=== PATIENT | female | born 1965 | race Caucasian/White ===

== ENCOUNTER → 2020-09-08 12:09 | Outpatient (CLI) | payer OTHER, SELFPAY ==
[2020-09-08 16:17] LABS: Coronavirus 19 IgG Antibody Negative (Negative); Coronavirus 19 IgM Antibody Negative (Negative)
== END ==
PROVIDERS: Visit Provider Surgery
DX: Z01.818 Encounter for other preprocedural examination (principal); L72.0 Epidermal cyst
CPT/HCPCS: 36415; 86328

== ENCOUNTER 2020-09-10 06:17 | Day surgery (SDC) | payer OTHER, SELFPAY ==
[2020-09-08 15:06] VITALS: BMI 29.9
[2020-09-10 06:46] VITALS: BP 140/98; PULSE 70; RESP 18; TEMP 36.7; O2SAT 98
--- NOTE | 2020-09-10 06:54 | P.PN_ITS ---
[facility] Anesthesia Checklist - Patient Identification Patient Identification: Arm Band, Verbal (Name & ) - Structural Data Admitted From: Home Planned Operative Procedure/s: ex cyst Consent for Planned Operative Procedure(s) Verified: Yes Verified Documents: History and Physical - NPO Status Verified Time NPO: 00:00 - Chart Verification Results Verified: CBC, BMP - Additional verifications Patient : No Anesthesia Reactions: No Hx Blood Transfusions: No Blood Transfusion Reaction: No Cephalosporin Allergy: No Previous Colonoscopy: No - Cardiovascular Assessment Heart Sounds: S1 & S2 Pulse Strength: Baseline Pulse Rhythm: Regular Peripheral Edema: No - Airway Assessment C-Spine Mobility Assessed: Yes TMJ Mobility Assessed: Yes Dentition: Good Dentition - Neurological Assessment Level of Consciousness: Awake, Alert, Appropriate Hx Seizures: No Numbness or tingling in extremities: No - Anesthesia Plan Anesthesia Risk discussed: Yes Anesthesia Plan: Verified ASA Class: I Anesthesia Type: MAC [facility] History I have reviewed the patient's past medical history: Yes Medical History: Denies:: Cancer, Diabetes Mellitus Type 1, Diabetes Mellitus Type 2, Internal Pacemaker, MRSA *Have you ever received a pneumonia vaccine?: No *Have you received a flu vaccine this season?: Yes Anesthesia experience/problems:: none Other Surgeries: Yes: Appendectomy, Hysterectomy-Total. No: Pacemaker Amputation: No Fractures: No - *Social History Smoking Status: Never smoker Alcohol Intake: never Substance Use Type: denies use *Occupational Status:: employed Housing: house Household Members: spouse *Travel in the last 8 weeks: None Family Hx:: No significant family history
--- NOTE | 2020-09-10 07:45 | HMH.OPNOTE ---
Date of procedure: 09/10/20 Pre-op Diagnosis:: Scalp cyst Post-op Diagnosis:: Same Procedure performed:: Excision of cyst from the left posterior scalp (excisional length 1.5 cm) with intermediate complexity closure Surgeon:: Enrrique Rosenthal MD LOADER DEMOLDER:: Jose Alfredo Rhodes Anesthesia: MAC, local Estimated blood loss (mL): 4 Clinical Note:: Patient is a 55-year-old female from [facility] referred by Dr. Alvarez for a scalp cyst. She states that she has had several cyst taken off of various places in the past. She has had a cyst on the left posterior scalp for about 2 years. However, it has increased in size. She has had some symptoms including burning and stinging sensation. She therefore desired surgical excision. Operative findings:: Consistent with noninfected inclusion cyst Operative note:: Patient was taken to the operating room. She is maintained on the stretcher. She was positioned. Limited hair removal was performed. The area was prepped and draped in the standard surgical fashion. Skin was marked with a skin marker. Local anesthetic was infiltrated consisting of a total of 7 cc of Marcaine with epinephrine. Elliptical incision was made. Careful dissection was carried down to the cyst capsule. Using tenotomy dissection the underlying scalp cyst was dissected free from the surrounding tissues intact with the overlying skin ellipse adherent. It was sent off as specimen. Hemostasis was achieved with electrocautery. Tissues were reapproximated with a couple of interrupted 3-0 Vicryl sutures. Skin was closed with several katelin. Dermabond was applied for dressing. Condition: stable Disposition: PACU Specimens:: Scalp cyst Complications:: None immediately apparent
[2020-09-10 07:50] VITALS: BP 111/71; PULSE 70; RESP 18; TEMP 36.3; O2SAT 96
[2020-09-10 08:00] VITALS: BP 107/69; PULSE 60; RESP 18; O2SAT 98
[2020-09-10 08:10] VITALS: BP 112/68; PULSE 72; RESP 18; O2SAT 96
== END 2020-09-10 08:10 | disposition home or self-care (01) ==
PROVIDERS: PCP Family Medicine; Visit Provider Surgery
PROC: (CPT 21011; principal; 2020-09-10 07:30)
DX: L72.3 Sebaceous cyst (principal); Z79.899 Other long term (current) drug therapy; Z86.69 Personal history of other diseases of the nervous system and sense organs; G43.909 Migraine, unspecified, not intractable, without status migrainosus
CPT/HCPCS: 21011; 12031; 96374

== ENCOUNTER → 2020-11-07 14:26 | Outpatient (CLI) | payer OTHER, SELFPAY ==
--- NOTE | 2020-11-07 14:40 | CT_ITS ---
PROCEDURE: CT ABDOMEN WO CON CLINICAL HISTORY: possible pancreatitis Upper abdominal pain across abdomen for 2 weeks with diarrhea COMPARISON: No exams were available for comparison TECHNIQUE: Axial images obtained with sagittal and coronal reformats. All CT scans at the facility use one or more dose reduction, viz: automated exposure control, ma/kV adjustment per patient size (including targeted exams where dose is matched to indication, i.e. head), or iterative reconstruction technique. FINDINGS: There is some minimal pericardial thickening anteriorly. There is a small hiatal hernia. Mild fatty liver. The gallbladder is somewhat distended. No radiopaque gallstones evident. The spleen and adrenal glands are unremarkable. No evidence of pancreatitis. No renal or ureteral calculi. There are few small nodes in the right lower quadrant and in the mesenteries. No acute bony finding. There is a mild amount of retained colonic feces. IMPRESSION: No acute finding. No evidence of pancreatitis based on this unenhanced exam. Dictated by: Kin Espino MD 11/07/2020 15:18 Kin Espino MD in [facility] 11/07/2020 15:18
[2020-11-07 15:28] LABS: Basophils # 0.1 K/mm3 (0-0.2); Basophils % 0.6 % (0.1-2.0); Eosinophils # 0.2 K/mm3 (0.0-0.4); Eosinophils % 1.8 % (0.1-12.0); Hematocrit 40.4 % (37.0-47.0); Hemoglobin 13.7 g/dL (12.2-16.2); Lymphocytes # 2.4 K/mm3 (0.7-4.5); Lymphocytes % 25.5 % (10-50); Mean Corpuscular HGB Conc 33.9 g/dL (31.8-35.4); Mean Corpuscular Hemoglobin 29.4 pg (27.0-31.2); Mean Corpuscular Volume 86.8 fl (81-99); Mean Platelet Volume 8.2 fl (7.4-10.4); Monocytes # 0.3 K/mm3 (0.1-1.0); Neutrophils # 6.4 K/mm3 (1.8-7.8); Neutrophils % 69.1 % (37.0-80.0); Platelet Count 256 K/mm3 (142-424); Red Blood Count 4.65 M/mm3 (4.20-5.40); Red Cell Distribution Width 13.2 % (11.5-17.5); White Blood Count 9.2 K/mm3 (4.8-10.8)
[2020-11-07 15:41] LABS: Alanine Aminotransferase 50 U/L (12-78); Albumin Level 4.8 g/dl (3.5-5.0); Albumin/Globulin Ratio 1.5 (1.1-1.8); Alkaline Phosphatase 86 U/L (38-126); Anion Gap 12.5 mEq/L (5-15); Aspartate Amino Transferase 57 U/L (14-36); Bilirubin,Total 0.4 mg/dl (0.2-1.3); Blood Urea Nitrogen 24 mg/dl (7-17); Calcium 10.1 mg/dl (8.4-10.2); Carbon Dioxide 30 mmol/L (22.0-30.0); Chloride 101 mmol/L (98-107); Estimated Glomerular Filt Rate 39 ml/min (>60); GFR (African American) 47 ML/MIN (>60); Globulin 3.1 g/dL (1.3-3.2); Glucose 104 mg/dl (74-100); Lipase 79 U/L (23-300); Potassium 3.5 mmoL/L (3.5-5.1); Sodium 140 mmol/L (136-145); Total Protein,Serum 7.9 g/dl (6.3-8.2)
== END ==
PROVIDERS: PCP Family Medicine; Visit Provider Family Medicine
DX: R10.9 Unspecified abdominal pain (principal)
CPT/HCPCS: 36415; 74150; 80053; 83690; 85025

== ENCOUNTER → 2021-03-09 09:07 | Outpatient (CLI) | payer OTHER, SELFPAY ==
--- NOTE | 2021-03-09 09:12 | US_ITS ---
PROCEDURE: US GALLBLADDER CLINICAL INDICATION: ruq pain COMPARISON: No exams were available for comparison FINDINGS: Pancreas: Unremarkable/Not well seen Liver: Unremarkable. There is appropriate direction of blood flow within a non dilated portal vein. Right kidney: Unremarkable appearing. No hydronephrosis. Gallbladder: No stones are evident. There is no gallbladder wall thickening. Common duct is upper normal at 6 mm. IMPRESSION: Negative gallbladder ultrasound. No stones evident. Dictated by: Kin Espino MD 03/09/2021 13:23 Kin Espino MD in [facility] 03/09/2021 13:23
== END ==
PROVIDERS: PCP Family Medicine; Visit Provider Family Medicine
DX: R10.9 Unspecified abdominal pain (principal)
CPT/HCPCS: 76705

== ENCOUNTER 2021-08-22 23:16 | Emergency (ER) | payer OTHER, SELFPAY ==
[2021-08-22 23:18] VITALS: BP 146/93; PULSE 114; RESP 16; TEMP 37.2; O2SAT 96; BMI 30.9
[2021-08-22 23:27] VITALS: BMI 30.9
[2021-08-22 23:30] LABS: Microscopic, Urine URINE MICROSCOPIC (MICROSCOPIC)
[2021-08-22 23:34] LABS: Appearance,Urine CLOUDY (Clear); Bilirubin,Urine Negative (Negative); Blood, Urine 1+ (Negative); Color,Urine YELLOW (Yellow); Glucose,Urine (UA) Negative (Negative); Ketones,Urine Negative (Negative); Leukocyte Esterase,Urine 2+ (Negative); Nitrate,Urine Negative (Negative); Protein,Urine TRACE (Negative); Specific Gravity, Urine <= 1.005 (1.005-1.030); Urobilinogen,Urine 0.2 EU/dl (0.2)
[2021-08-22 23:48] LABS: Bacteria,Urine 3+ /lpf; WBC,Urine TNTC #/hpf (0-3)
[2021-08-22 23:55] LABS: Basophils # 0.1 K/mm3 (0-0.2); Basophils % 0.7 % (0.1-2.0); Eosinophils # 0.1 K/mm3 (0.0-0.4); Eosinophils % 0.9 % (0.1-12.0); Hematocrit 38.8 % (37.0-47.0); Lymphocytes # 1.2 K/mm3 (0.7-4.5); Lymphocytes % 11.6 % (10-50); Mean Corpuscular HGB Conc 33.5 g/dL (31.8-35.4); Mean Corpuscular Hemoglobin 28.7 pg (27.0-31.2); Mean Corpuscular Volume 85.6 fl (81-99); Mean Platelet Volume 9.1 fl (7.4-10.4); Monocytes # 0.3 K/mm3 (0.1-1.0); Monocytes % 3.2 % (1.7-9.3); Neutrophils # 8.6 K/mm3 (1.8-7.8); Neutrophils % 83.5 % (37.0-80.0); Platelet Count 271 K/mm3 (142-424); Red Blood Count 4.53 M/mm3 (4.20-5.40); Red Cell Distribution Width 13.3 % (11.5-17.5); White Blood Count 10.3 K/mm3 (4.8-10.8)
[2021-08-23] VITALS: BP 143/84; PULSE 92; O2SAT 95
[2021-08-23 00:04] LABS: Alanine Aminotransferase 30 U/L (12-78); Albumin Level 4.6 g/dl (3.5-5.0); Albumin/Globulin Ratio 1.5 (1.1-1.8); Alkaline Phosphatase 77 U/L (38-126); Amylase 122 U/L (30-110); Anion Gap 14.9 mEq/L (5-15); Aspartate Amino Transferase 30 U/L (14-36); Bilirubin,Total 0.3 mg/dl (0.2-1.3); Blood Urea Nitrogen 25 mg/dl (7-17); Calcium 9.8 mg/dl (8.4-10.2); Carbon Dioxide 27 mmol/L (22.0-30.0); Chloride 100 mmol/L (98-107); Creatinine Clearance Estimated 65 mL/min (50-200); Estimated Glomerular Filt Rate 46 ml/min (>60); GFR (African American) 56 ML/MIN (>60); Globulin 3.1 g/dL (1.3-3.2); Glucose 115 mg/dl (74-100); Potassium 3.9 mmoL/L (3.5-5.1); Sodium 138 mmol/L (136-145); Total Protein,Serum 7.7 g/dl (6.3-8.2)
[2021-08-23 00:13] LABS: Lipase 780 U/L (23-300)
--- NOTE | 2021-08-23 00:14 | CT_ITS ---
PROCEDURE INFORMATION: Exam: CT Abdomen And Pelvis With Contrast Exam date and time: 08/23/2021 12:14 AM Age: 56 years old Clinical indication: Abdominal pain; Localized; Lower; Prior surgery; Surgery date: 6+ months; Surgery type: Hysterectomy appendectomy; Additional info: Lower abd pain TECHNIQUE: Imaging protocol: Computed tomography of the abdomen and pelvis with contrast. Radiation optimization: All CT scans at this facility use at least one of these dose optimization techniques: automated exposure control; mA and/or kV adjustment per patient size (includes targeted exams where dose is matched to clinical indication); or iterative reconstruction. Contrast material: ISOVUE; Contrast volume: 70 ml; Contrast route: IV; COMPARISON: CT ABDOMEN WO CON 11/07/2020 2:51 PM FINDINGS: Lungs: Nonspecific minor left basilar streaky opacities suggest atelectasis or parenchymal scarring. The visualized lung bases are otherwise clear. Pleural spaces: There are no pleural effusions. Heart: There is a small pericardial fluid collection present.The visualized portions of the heart are unremarkable. Liver: There is diffuse decrease in hepatic parenchymal density consistent with fatty infiltration. Gallbladder and bile ducts: The gallbladder is normal. Pancreas: The pancreas is normal. Spleen: The spleen demonstrates punctate calcifications, consistent with remote granulomatous organism exposure. Adrenal glands: The adrenal glands are normal. Kidneys and ureters: There is mild uroepithelial enhancement of the proximal renal pelves and proximal right ureter. The kidneys are otherwise within range of normal. No ureteric stone disease. Extrarenal pelves are likely present bilaterally. No caliectasis. Stomach and bowel: The stomach is normal. The duodenum is unremarkable. Lack of gastrointestinal contrast limits evaluation of bowel. Mild diverticulosis is present in the distal colon. There is no evidence of colitis/diverticulitis. There is mildly excessive colonic stool content. Unopacified loops of small bowel within range of normal. Appendix: No evidence of appendicitis. Intraperitoneal space: There is no evidence of free intraperitoneal or pelvic fluid. No evidence of intraperitoneal free air. Vasculature: No abdominal aortic aneurysm. Lymph nodes: No enlarged lymph nodes. Urinary bladder: There is moderate bladder wall thickening. The bladder is decompressed. Reproductive: The uterus is either atrophic or absent.No adnexal cysts or masses are identified. Bones/joints: There is a mild S-shaped thoracolumbar scoliosis.There is no evidence of acute fracture.The thoracolumbar spine demonstrates mild degenerative changes at multiple levels. Soft tissues: Unremarkable. IMPRESSION: 1. Mild uroepithelial enhancement involving the renal pelves and proximal right ureter of uncertain clinical significance. Correlate clinically regarding the possibility of pyelonephritis. 2. Fatty hepatic infiltration. 3. Bladder incompletely distended with moderate bladder wall thickening consistent with chronic outflow obstruction, incomplete distention or cystitis. 4. Mild constipation.
[2021-08-23 00:21] LABS: Erythrocyte Sedimentation Rate 79 mm/hr (0-30)
[2021-08-23 00:23] LABS: Procalcitonin 0.331 ng/mL (0.0-2.0)
[2021-08-23 00:30] VITALS: BP 133/86; PULSE 89; O2SAT 95
--- NOTE | 2021-08-23 01:05 | HMH.EDNVD ---
ED Disposition Clinical Impression: Elevated amylase and lipase UTI (urinary tract infection) Qualifiers: Urinary tract infection type: site unspecified Hematuria presence: without hematuria Qualified Code(s): N39.0 - Urinary tract infection, site not specified Disposition: Home, Self-Care Condition on Discharge: Good Instructions: DI for Urinary Tract Infection (UTI) Additional Instructions: fluids and use meds and see pcp tuesday Prescriptions: levoFLOXacin [Levaquin 500mg tab] 500 mg PO DAILY #7 tab Transmission Status: Pending to [facility] Phenazopyridine HCl [Pyridium 200mg Tablet] 200 pow PO TID #6 tab Transmission Status: Pending to [facility] Referrals: Alex Alvarez MD [Primary Care Provider] - - Critical Care Critical Care Time: No Attestation: On 08/22/21, the high probability of a clinically significant, sudden or life threatening deterioration of the following system(s) required my full and direct attention, intervention and personal management. The time I documented below is in addition to time spent performing reported procedures but includes the following listed in this critical care notation. Medical Decision Making - Medical Records Medical records reviewed: Yes: I reviewed the patient's medical records. - Bj Inquiry Pt receiving controlled substance: No Vital Signs: 08/22/21 23:18 08/23/21 00:00 08/23/21 00:30 Temperature 98.9 F Temperature Source Oral Pulse Rate 92 H 89 Pulse Rate [Right] 114 H Respiratory Rate 16 Blood Pressure 143/84 H 133/86 Blood Pressure [Right Arm] 146/93 H Blood Pressure Mean [Right Arm] 110 02 Sat by Pulse Oximetry 96 95 95 Oxygen Delivery Method Room Air Room Air - Lab Data Lab results reviewed: Yes: I reviewed the patient's lab results. Lab Results 08/22/21 23:25: Urine Color Yellow, Urine Appearance Cloudy, Urine pH 6.0, Ur Specific [place] <= 1.005, Urine Protein Trace, Urine Glucose (UA) Negative, Urine Ketones Negative, Urine Blood 1+, Urine Nitrate Negative, Urine Bilirubin Negative, Urine Urobilinogen 0.2, Ur Leukocyte Esterase 2+ A, Urine RBC 5-10, Urine WBC Tntc, Ur Squamous Epith Cells 3-5, Urine Bacteria 3+ 08/22/21 23:50: WBC 10.3, RBC 4.53, Hgb 13.0, Hct 38.8, MCV 85.6, MCH 28.7, MCHC 33.5, RDW 13.3, Plt Count 271, MPV 9.1, Neut % (Auto) 83.5 H, Lymph % (Auto) 11.6, [place] % (Auto) 3.2, Eos % (Auto) 0.9, Baso % (Auto) 0.7, Neut # (Auto) 8.6 H, Lymph # (Auto) 1.2, [place] # (Auto) 0.3, Eos # (Auto) 0.1, Baso # (Auto) 0.1, ESR 79 H 08/22/21 23:50: Sodium 138, Potassium 3.9, Chloride 100, Carbon Dioxide 27, Anion Gap 14.9, BUN 25 H, Creatinine 1.20 H, Estimated Creat Clear 65, Estimated GFR 46 L, Est GFR ( Amer) 56 L, Glucose 115 H, Calcium 9.8, Total Bilirubin 0.3, AST 30, ALT 30, Alkaline Phosphatase 77, C-Reactive Protein 60.0 H, Total Protein 7.7, Albumin 4.6, Globulin 3.1, Albumin/Globulin Ratio 1.5, Amylase 122 H, Lipase 780 H, Procalcitonin 0.331 Result diagrams: 08/22/21 23:50 08/22/21 23:50 Orders (Tests/Meds): ED MEDICATIONS Generic Name Dose Route Start Last Admin Trade Name Freq PRN Reason Stop Dose Admin Sodium Chloride 1,000 mls @ 999 mls/hr 08/22/21 23:45 08/22/21 23:55 Sod Chlor 0.9% 1000ml Bag IV 08/23/21 00:45 999 mls/hr .Q1H1M ANDREA Administration Ceftriaxone Sodium 1 gm/ 50 mls @ 100 mls/hr 08/22/21 23:45 08/22/21 23:56 Sodium Chloride IV 09/05/21 23:44 100 mls/hr Q24H ANDREA Administration Sodium Chloride 8 ml 08/22/21 23:35 Sodium Chloride 0.9% 10ml Vial IV 09/21/21 23:34 NEEDED PRN dilute pepcid Discontinued Medications Generic Name Dose Route Start Last Admin Trade Name Freq PRN Reason Stop Dose Admin Famotidine 20 mg 08/22/21 23:35 08/22/21 23:46 Famotidine 20mg/2ml Vial IV 08/22/21 23:36 Not Given ONCE ONE Iopamidol 70 ml 08/23/21 01:21 08/23/21 01:22 Iopamidol-370 (76%);100ml Bottle IV 08/23/21 01:2
[2021-08-23 02:07] VITALS: BP 132/74; PULSE 87; RESP 18; TEMP 36.6; O2SAT 99
== END 2021-08-23 02:09 | disposition home or self-care (01) ==
PROVIDERS: Emergency Provider Emergency Medicine; PCP Family Medicine
DX: N30.00 Acute cystitis without hematuria (principal); I10 Essential (primary) hypertension; R74.8 Abnormal levels of other serum enzymes
CPT/HCPCS: 74177; 80053; 81001; 82150; 83690; 84145; 85025; 85651; 86140; 87086; 87088; 87186; 96365; 96375; 99283; J2405; Q9967

== ENCOUNTER → 2021-08-24 15:04 | Outpatient (CLI) | payer OTHER, SELFPAY ==
[2021-08-24 16:49] LABS: Lipase 44 U/L (23-300)
== END ==
PROVIDERS: Visit Provider Family Medicine
DX: R10.13 Epigastric pain (principal)
CPT/HCPCS: 83690

== ENCOUNTER 2021-08-26 15:38 | Emergency (ER) | payer OTHER, SELFPAY ==
[2021-08-26 15:39] VITALS: BP 163/103; PULSE 70; RESP 18; TEMP 36.6; O2SAT 97; BMI 30.9
--- NOTE | 2021-08-26 16:26 | HMH.EDGENADL ---
ED Disposition Clinical Impression: Urinary tract infection Qualifiers: Urinary tract infection type: site unspecified Hematuria presence: without hematuria Qualified Code(s): N39.0 - Urinary tract infection, site not specified Disposition: Home, Self-Care Condition on Discharge: Good Instructions: DI for Urinary Tract Infection (UTI) Additional Instructions: Additional instructions for URINARY TRACT INFECTION: Continue to take antibiotic as prescribed. Return immediately if you have an uncontrollable fever greater than 102 degrees, severe back or abdominal pain, inability to urinate, or repetitive vomiting. Call Dr. Alvarez on his cell phone if concerns. Referrals: Alex Alvarez MD [Primary Care Provider] - - Critical Care Critical Care Time: No Attestation: On 08/26/21, the high probability of a clinically significant, sudden or life threatening deterioration of the following system(s) required my full and direct attention, intervention and personal management. The time I documented below is in addition to time spent performing reported procedures but includes the following listed in this critical care notation. Medical Decision Making - Medical Records Medical records reviewed: Yes: I reviewed the patient's medical records. MR Comment: Reviewed emergency department note from 08/22/2021. Reviewed associated labs, CT scan report. Patient was treated with intravenous Rocephin and discharged on Levaquin. Reviewed urine culture which shows E. coli, resistant to Levaquin. Reviewed office note from 2 days ago from primary care provider. Treated with an injection of Rocephin and antibiotic was changed to nitrofurantoin. - Bj Inquiry Pt receiving controlled substance: No Vital Signs: 08/26/21 15:39 Temperature 97.9 F Temperature Source Oral Pulse Rate [Right Radial] 70 Respiratory Rate 18 Blood Pressure [Right Arm] 163/103 H Blood Pressure Mean [Right Arm] 123 Blood Pressure Source [Right Arm] Automatic Cuff Blood Pressure Position [Right Arm] Sitting 02 Sat by Pulse Oximetry 97 Oxygen Delivery Method Room Air - Lab Data Lab Results 08/26/21 16:30: Urine Color Yellow, Urine Appearance Clear, Urine pH 6.0, Ur Specific [place] <= 1.005, Urine Protein Negative, Urine Glucose (UA) Negative, Urine Ketones Negative, Urine Blood Negative, Urine Nitrate Negative, Urine Bilirubin Negative, Urine Urobilinogen 0.2, Ur Leukocyte Esterase Negative, Urine RBC None, Urine WBC 5-10, Ur Squamous Epith Cells 5-10, Urine Bacteria Trace 08/26/21 17:11: WBC 5.9, RBC 4.09 L, Hgb 12.0 L, Hct 35.8 L, MCV 87.5, MCH 29.3, MCHC 33.4, RDW 13.1, Plt Count 282, MPV 8.7, Neut % (Auto) 53.1, Lymph % (Auto) 38.2, [place] % (Auto) 5.2, Eos % (Auto) 2.4, Baso % (Auto) 1.0, Neut # (Auto) 3.2, Lymph # (Auto) 2.3, [place] # (Auto) 0.3, Eos # (Auto) 0.1, Baso # (Auto) 0.1 08/26/21 17:11: Sodium 143, Potassium 3.4 L, Chloride 104, Carbon Dioxide 30, Anion Gap 12.4, BUN 20 H, Creatinine 1.20 H, Estimated Creat Clear 65, Estimated GFR 46 L, Est GFR ( Amer) 56 L, Glucose 86, Calcium 9.4, Total Bilirubin 0.2, AST 31, ALT 18, Alkaline Phosphatase 70, Total Protein 7.0, Albumin 4.1, Globulin 2.9, Albumin/Globulin Ratio 1.4, Amylase 51, Lipase 86 08/26/21 17:11: Lactate 0.7 Result diagrams: 08/26/21 17:11 08/26/21 17:11 Orders (Tests/Meds): ED MEDICATIONS Generic Name Dose Route Start Last Admin Trade Name Freq PRN Reason Stop Dose Admin Ceftriaxone Sodium 1 gm/ 50 mls @ 100 mls/hr 08/26/21 18:00 Sodium Chloride IV 09/09/21 17:59 Q24H [facility] ORDERS Category Date Time Status Blood Culture Stat Micro 08/26/21 17:17 Received - Physician Consults Physician Consulted: Dr. Alvarez Time: 17:45 Reason -: Pt condition Comment/Response: Requests Rocephin 1 g IV, then discharge. Patient may call him on his cell phone over the weekend if any problems. Medical Decision Narrative: Urine analysis has improved, essentially normal. CBC un
[2021-08-26 16:47] LABS: Microscopic, Urine URINE MICROSCOPIC (MICROSCOPIC)
[2021-08-26 16:48] LABS: Appearance,Urine CLEAR (Clear); Bilirubin,Urine Negative (Negative); Blood, Urine Negative (Negative); Color,Urine YELLOW (Yellow); Glucose,Urine (UA) Negative (Negative); Ketones,Urine Negative (Negative); Leukocyte Esterase,Urine Negative (Negative); Nitrate,Urine Negative (Negative); Protein,Urine Negative (Negative); Specific Gravity, Urine <= 1.005 (1.005-1.030); Urobilinogen,Urine 0.2 EU/dl (0.2)
[2021-08-26 17:05] LABS: Bacteria,Urine Trace /lpf
[2021-08-26 17:30] LABS: Basophils # 0.1 K/mm3 (0-0.2); Chloride 104 mmol/L (98-107); Eosinophils # 0.1 K/mm3 (0.0-0.4); Eosinophils % 2.4 % (0.1-12.0); Hematocrit 35.8 % (37.0-47.0); Lymphocytes # 2.3 K/mm3 (0.7-4.5); Lymphocytes % 38.2 % (10-50); Mean Corpuscular HGB Conc 33.4 g/dL (31.8-35.4); Mean Corpuscular Hemoglobin 29.3 pg (27.0-31.2); Mean Corpuscular Volume 87.5 fl (81-99); Mean Platelet Volume 8.7 fl (7.4-10.4); Monocytes # 0.3 K/mm3 (0.1-1.0); Monocytes % 5.2 % (1.7-9.3); Neutrophils # 3.2 K/mm3 (1.8-7.8); Neutrophils % 53.1 % (37.0-80.0); Platelet Count 282 K/mm3 (142-424); Potassium 3.4 mmoL/L (3.5-5.1); Red Blood Count 4.09 M/mm3 (4.20-5.40); Red Cell Distribution Width 13.1 % (11.5-17.5); Sodium 143 mmol/L (136-145); White Blood Count 5.9 K/mm3 (4.8-10.8)
[2021-08-26 17:32] LABS: Alanine Aminotransferase 18 U/L (12-78); Amylase 51 U/L (30-110); Aspartate Amino Transferase 31 U/L (14-36); Blood Urea Nitrogen 20 mg/dl (7-17); Creatinine Clearance Estimated 65 mL/min (50-200); Estimated Glomerular Filt Rate 46 ml/min (>60); GFR (African American) 56 ML/MIN (>60)
[2021-08-26 17:33] LABS: Albumin Level 4.1 g/dl (3.5-5.0); Albumin/Globulin Ratio 1.4 (1.1-1.8); Alkaline Phosphatase 70 U/L (38-126); Anion Gap 12.4 mEq/L (5-15); Bilirubin,Total 0.2 mg/dl (0.2-1.3); Calcium 9.4 mg/dl (8.4-10.2); Carbon Dioxide 30 mmol/L (22.0-30.0); Globulin 2.9 g/dL (1.3-3.2); Glucose 86 mg/dl (74-100); Lactic Acid 0.7 mmol/L (0.7-2.1); Lipase 86 U/L (23-300)
--- NOTE | 2021-08-26 17:47 | PC.NURSE ---
Dr Barahona speaking to Dr Alvarez
[2021-08-26 19:55] VITALS: BP 163/103; PULSE 73; RESP 18; TEMP 36.8; O2SAT 97
== END 2021-08-26 19:58 | disposition home or self-care (01) ==
PROVIDERS: Emergency Provider Emergency Medicine; PCP Family Medicine
DX: N30.00 Acute cystitis without hematuria (principal); I10 Essential (primary) hypertension
CPT/HCPCS: 80053; 81001; 82150; 83605; 83690; 85025; 87040; 96365; 99282

== ENCOUNTER 2021-09-12 00:55 | Emergency (ER) | payer OTHER, SELFPAY ==
[2021-09-12 00:56] VITALS: BP 120/60; PULSE 112; RESP 16; TEMP 36.9; O2SAT 95; BMI 30.8
[2021-09-12 01:44] LABS: Microscopic, Urine URINE MICROSCOPIC (MICROSCOPIC)
[2021-09-12 01:52] LABS: Appearance,Urine CLEAR (Clear); Bilirubin,Urine Negative (Negative); Blood, Urine Negative (Negative); Color,Urine YELLOW (Yellow); Glucose,Urine (UA) Negative (Negative); Ketones,Urine TRACE (Negative); Leukocyte Esterase,Urine TRACE (Negative); Nitrate,Urine Negative (Negative); Protein,Urine 1+ (Negative); Urobilinogen,Urine 0.2 EU/dl (0.2)
--- NOTE | 2021-09-12 01:54 | CT_ITS ---
PROCEDURE INFORMATION: Exam: CT Abdomen And Pelvis With Contrast Exam date and time: 09/12/2021 1:54 AM Age: 56 years old Clinical indication: Abdominal pain; Flank; Right TECHNIQUE: Imaging protocol: Computed tomography of the abdomen and pelvis with contrast. Radiation optimization: All CT scans at this facility use at least one of these dose optimization techniques: automated exposure control; mA and/or kV adjustment per patient size (includes targeted exams where dose is matched to clinical indication); or iterative reconstruction. Contrast material: ISOVUE; Contrast volume: 75 ml; Contrast route: IV; COMPARISON: CT ABDOMEN PELVIS W CON 08/23/2021 1:08 AM FINDINGS: Lungs: Minimal bibasilar atelectasis and/or scarring. Diaphragm: Small-sized hiatal hernia. Liver: Normal. Gallbladder and bile ducts: Normal. Pancreas: Normal. Spleen: Splenic calcifications, compatible with prior granulomatous disease. Adrenal glands: Normal. No mass. Kidneys and ureters: Normal. Stomach and bowel: Colonic diverticulosis. Appendix: No evidence of appendicitis. Intraperitoneal space: Unremarkable. No free air. No significant fluid collection. Vasculature: Unremarkable. No abdominal aortic aneurysm. Lymph nodes: Unremarkable. No enlarged lymph nodes. Urinary bladder: Unremarkable as visualized. Reproductive: Uterus is surgically absent. Bones/joints: No acute abnormality. Soft tissues: Small fat containing umbilical hernia. IMPRESSION: No acute abdominal or pelvic abnormality.
[2021-09-12 01:56] LABS: Basophils % 0.2 % (0.1-2.0); Eosinophils # 0.3 K/mm3 (0.0-0.4); Eosinophils % 4.3 % (0.1-12.0); Hematocrit 37.6 % (37.0-47.0); Hemoglobin 12.4 g/dL (12.2-16.2); Lymphocytes # 0.4 K/mm3 (0.7-4.5); Lymphocytes % 5.1 % (10-50); Mean Corpuscular HGB Conc 33.1 g/dL (31.8-35.4); Mean Corpuscular Hemoglobin 28.7 pg (27.0-31.2); Mean Corpuscular Volume 86.7 fl (81-99); Mean Platelet Volume 8.6 fl (7.4-10.4); Monocytes # 0.3 K/mm3 (0.1-1.0); Monocytes % 4.1 % (1.7-9.3); Neutrophils # 6.6 K/mm3 (1.8-7.8); Neutrophils % 86.3 % (37.0-80.0); Platelet Count 162 K/mm3 (142-424); Red Blood Count 4.34 M/mm3 (4.20-5.40); Red Cell Distribution Width 13.3 % (11.5-17.5); White Blood Count 7.6 K/mm3 (4.8-10.8)
[2021-09-12 01:58] LABS: MANUAL DIFFERENTIAL MANUAL DIFFERENTIAL (MANUAL DIFF)
[2021-09-12 01:59] LABS: Amorphous Sediment,Urine Trace /lpf
[2021-09-12 02:00] LABS: Alanine Aminotransferase 37 U/L (12-78); Albumin Level 4.2 g/dl (3.5-5.0); Albumin/Globulin Ratio 1.6 (1.1-1.8); Alkaline Phosphatase 70 U/L (38-126); Anion Gap 11.3 mEq/L (5-15); Aspartate Amino Transferase 45 U/L (14-36); Bilirubin,Total 0.4 mg/dl (0.2-1.3); Blood Urea Nitrogen 20 mg/dl (7-17); Calcium 9.4 mg/dl (8.4-10.2); Carbon Dioxide 26 mmol/L (22.0-30.0); Chloride 104 mmol/L (98-107); Creatinine Clearance Estimated 70 mL/min (50-200); Estimated Glomerular Filt Rate 51 ml/min (>60); GFR (African American) 62 ML/MIN (>60); Globulin 2.7 g/dL (1.3-3.2); Glucose 110 mg/dl (74-100); Potassium 3.3 mmoL/L (3.5-5.1); Sodium 138 mmol/L (136-145); Total Protein,Serum 6.9 g/dl (6.3-8.2)
[2021-09-12 02:06] LABS: C-Reactive Protein 108.3 mg/L (0-4)
[2021-09-12 02:12] LABS: Lymphocytes % 4 % (10-50); Neutrophils % 84 % (42-76); Platelet Estimate Normal; RBC Morphology Normal; Total Cells Counted 100
[2021-09-12 02:19] LABS: Procalcitonin 0.592 ng/mL (0.0-2.0)
[2021-09-12 02:30] LABS: Erythrocyte Sedimentation Rate 31 mm/hr (0-30)
[2021-09-12 02:43] LABS: Troponin I < 0.01 ng/ml (0.00-0.034)
--- NOTE | 2021-09-12 03:10 | HMH.EDNVD ---
ED Disposition Clinical Impression: UTI (urinary tract infection) Qualifiers: Urinary tract infection type: site unspecified Hematuria presence: without hematuria Qualified Code(s): N39.0 - Urinary tract infection, site not specified Disposition: Home, Self-Care Condition on Discharge: Good Instructions: DI for Nausea -- Adult Additional Instructions: fluids and use meds and call pcp tuesday Referrals: Alex Alvarez MD [Primary Care Provider] - - Critical Care Critical Care Time: No Attestation: On 09/12/21, the high probability of a clinically significant, sudden or life threatening deterioration of the following system(s) required my full and direct attention, intervention and personal management. The time I documented below is in addition to time spent performing reported procedures but includes the following listed in this critical care notation. Medical Decision Making - Medical Records Medical records reviewed: Yes: I reviewed the patient's medical records. - Bj Inquiry Pt receiving controlled substance: No Vital Signs: 09/12/21 00:56 Temperature 98.5 F Temperature Source Oral Pulse Rate [Apical] 112 H Respiratory Rate 16 Blood Pressure [Right Arm] 120/60 Blood Pressure Mean [Right Arm] 80 Blood Pressure Source [Right Arm] Automatic Cuff Blood Pressure Position [Right Arm] Sitting 02 Sat by Pulse Oximetry 95 Oxygen Delivery Method Room Air - Lab Data Lab results reviewed: Yes: I reviewed the patient's lab results. Lab Results 09/12/21 00:03: Urine Color Yellow, Urine Appearance Clear, Urine pH 6.0, Ur Specific [place] 1.020, Urine Protein 1+, Urine Glucose (UA) Negative, Urine Ketones Trace, Urine Blood Negative, Urine Nitrate Negative, Urine Bilirubin Negative, Urine Urobilinogen 0.2, Ur Leukocyte Esterase Trace, Urine WBC 3-5, Amorphous Sediment Trace 09/12/21 01:30: WBC 7.6, RBC 4.34, Hgb 12.4, Hct 37.6, MCV 86.7, MCH 28.7, MCHC 33.1, RDW 13.3, Plt Count 162, MPV 8.6, Neut % (Auto) 86.3 H, Lymph % (Auto) 5.1 L, [place] % (Auto) 4.1, Eos % (Auto) 4.3, Baso % (Auto) 0.2, Neut # (Auto) 6.6, Lymph # (Auto) 0.4 L, [place] # (Auto) 0.3, Eos # (Auto) 0.3, Baso # (Auto) 0.0, Total Counted 100, Neutrophils % (Manual) 84 H, Band Neutrophils % 12.0 H, Lymphocytes % (Manual) 4 L, Platelet Estimate Normal, RBC Morphology Normal, ESR 31 H 09/12/21 01:30: Sodium 138, Potassium 3.3 L, Chloride 104, Carbon Dioxide 26, Anion Gap 11.3, BUN 20 H, Creatinine 1.10 H, Estimated Creat Clear 70, Estimated GFR 51 L, Est GFR ( Amer) 62, Glucose 110 H, Calcium 9.4, Total Bilirubin 0.4, AST 45 H, ALT 37, Alkaline Phosphatase 70, C-Reactive Protein 108.3 H, Total Protein 6.9, Albumin 4.2, Globulin 2.7, Albumin/Globulin Ratio 1.6, Procalcitonin 0.592 09/12/21 01:30: Troponin I < 0.01 09/12/21 01:30: Lactate 1.0 Result diagrams: 09/12/21 01:30 09/12/21 01:30 Orders (Tests/Meds): ED MEDICATIONS Generic Name Dose Route Start Last Admin Trade Name Freq PRN Reason Stop Dose Admin Sodium Chloride 1,000 mls @ 999 mls/hr 09/12/21 02:00 09/12/21 01:54 Sod Chlor 0.9% 1000ml Bag IV 09/12/21 03:00 999 mls/hr .Q1H1M ANDREA Administration Discontinued Medications Generic Name Dose Route Start Last Admin Trade Name Freq PRN Reason Stop Dose Admin Acetaminophen 1,000 mg 09/12/21 03:32 09/12/21 03:35 Acetaminophen 500mg Tab PO 09/12/21 03:33 1,000 mg ONCE ONE Administration Hydromorphone HCl 1 mg 09/12/21 04:15 09/12/21 04:18 Hydromorphone 2mg/Ml Syringe IV 09/12/21 04:16 1 mg ONCE ONE Administration Iopamidol 75 ml 09/12/21 02:27 09/12/21 02:28 Iopamidol-370 (76%);100ml Bottle IV 09/12/21 02:28 75 ml ONCE ONE Administration Ketorolac Tromethamine 30 mg 09/12/21 02:47 09/12/21 02:49 Ketorolac 30mg/Ml Vial IV 09/12/21 02:48 30 mg ONCE ONE Administration Ondansetron HCl 4 mg 09/12/21 01:53 09/12/21 01:53 Ondansetron 4mg/2ml Vial IV 09/12/21 01:54 4 mg ONCE ONE
[2021-09-12 05:37] VITALS: BP 125/75; PULSE 95; RESP 18; TEMP 36.8; O2SAT 98
== END 2021-09-12 05:41 | disposition home or self-care (01) ==
PROVIDERS: Emergency Provider Emergency Medicine; PCP Family Medicine
DX: N30.00 Acute cystitis without hematuria (principal); I10 Essential (primary) hypertension; G43.709 Chronic migraine without aura, not intractable, without status migrainosus
CPT/HCPCS: 74177; 80053; 81001; 83605; 84145; 84484; 85007; 85025; 85651; 86140; 87040; 87086; 96365; 96375; 99282; J2405; Q9967

== ENCOUNTER 2021-09-13 16:56 | Emergency (ER) | payer OTHER, SELFPAY ==
[2021-09-13 18:01] VITALS: BP 129/80; PULSE 80; RESP 18; TEMP 36.6; O2SAT 98; BMI 30.8
[2021-09-13 18:18] LABS: Microscopic, Urine URINE MICROSCOPIC (MICROSCOPIC)
[2021-09-13 18:18] LABS: Coronavirus 19, PCR Not Detected (NotDetected); Influenza A, PCR Not Detected (NotDetected); Influenza B, PCR Not Detected (NotDetected)
--- NOTE | 2021-09-13 18:19 | XR_ITS ---
PROCEDURE INFORMATION: Exam: XR Chest Exam date and time: 09/13/2021 6:19 PM Age: 56 years old Clinical indication: Cough and fever; Patient HX: Cough, fever, possible covid. ; Additional info: Coughing TECHNIQUE: Imaging protocol: XR of the chest. Views: 1 view. COMPARISON: CT ABDOMEN PELVIS W CON 09/12/2021 2:17 AM FINDINGS: Lungs: See Pleural spaces finding. Pleural spaces: Left basilar opacity, likely pleural fluid and atelectasis, with possible small left lower lobe pneumonia. Heart/Mediastinum: Normal. Bones/joints: Multilevel thoracic spine degenerative disc space narrowing and osteophyte formation, with dextroscoliosis of the thoracic spine. IMPRESSION: Left basilar opacity, likely pleural fluid and atelectasis, with possible small left lower lobe pneumonia. Recommend follow-up.
[2021-09-13 18:23] LABS: Appearance,Urine CLEAR (Clear); Bilirubin,Urine Negative (Negative); Blood, Urine TRACE-I (Negative); Color,Urine YELLOW (Yellow); Glucose,Urine (UA) Negative (Negative); Ketones,Urine Negative (Negative); Leukocyte Esterase,Urine TRACE (Negative); Nitrate,Urine Negative (Negative); PH,Urine 6.5 (5.0-8.5); Protein,Urine 1+ (Negative); Urobilinogen,Urine 0.2 EU/dl (0.2)
--- NOTE | 2021-09-13 18:27 | PC.NURSE ---
rad at bedside
[2021-09-13 18:42] LABS: Bacteria,Urine Trace /lpf
[2021-09-13 19:04] LABS: Basophils % 0.3 % (0.1-2.0); Eosinophils # 0.5 K/mm3 (0.0-0.4); Eosinophils % 7.5 % (0.1-12.0); Hematocrit 40.4 % (37.0-47.0); Hemoglobin 13.1 g/dL (12.2-16.2); Lymphocytes # 0.7 K/mm3 (0.7-4.5); Lymphocytes % 10.1 % (10-50); Mean Corpuscular HGB Conc 32.5 g/dL (31.8-35.4); Mean Corpuscular Hemoglobin 28.4 pg (27.0-31.2); Mean Corpuscular Volume 87.6 fl (81-99); Mean Platelet Volume 8.4 fl (7.4-10.4); Monocytes # 0.2 K/mm3 (0.1-1.0); Monocytes % 2.5 % (1.7-9.3); Neutrophils # 5.7 K/mm3 (1.8-7.8); Neutrophils % 79.6 % (37.0-80.0); Platelet Count 177 K/mm3 (142-424); Red Blood Count 4.62 M/mm3 (4.20-5.40); Red Cell Distribution Width 13.3 % (11.5-17.5); White Blood Count 7.1 K/mm3 (4.8-10.8)
[2021-09-13 19:22] LABS: Alanine Aminotransferase 84 U/L (12-78); Albumin Level 4.1 g/dl (3.5-5.0); Albumin/Globulin Ratio 1.4 (1.1-1.8); Alkaline Phosphatase 75 U/L (38-126); Anion Gap 8.6 mEq/L (5-15); Aspartate Amino Transferase 100 U/L (14-36); Bilirubin,Total 0.9 mg/dl (0.2-1.3); Blood Urea Nitrogen 17 mg/dl (7-17); Carbon Dioxide 29 mmol/L (22.0-30.0); Chloride 104 mmol/L (98-107); Creatinine Clearance Estimated 70 mL/min (50-200); Estimated Glomerular Filt Rate 51 ml/min (>60); GFR (African American) 62 ML/MIN (>60); Globulin 2.9 g/dL (1.3-3.2); Glucose 86 mg/dl (74-100); Potassium 3.6 mmoL/L (3.5-5.1); Sodium 138 mmol/L (136-145)
--- NOTE | 2021-09-13 20:16 | HMH.EDGENADL ---
ED Disposition Clinical Impression: Pneumonia Disposition: Home, Self-Care Condition on Discharge: Good Instructions: Pneumonia-Adult Additional Instructions: Please take your antibiotic as prescribed for your pneumonia. Please take tylenol and ibuprofen for pain control. Please follow up with your primary care physician in 2-3 days for further management. Return to the ED for any concerning symptoms such as difficulty breathing, chest pain, lethargy, inability to eat and drink or any other concerning symptoms. Prescriptions: Azithromycin [Z-Maikel 250mg Tab*] 250 mg PO UD DOSE PK #6 tab Transmission Status: Received by [facility] Referrals: Alex Alvarez MD [Primary Care Provider] - - Critical Care Critical Care Time: No Attestation: On 09/13/21, the high probability of a clinically significant, sudden or life threatening deterioration of the following system(s) required my full and direct attention, intervention and personal management. The time I documented below is in addition to time spent performing reported procedures but includes the following listed in this critical care notation. Medical Decision Making - Medical Records Medical records reviewed: Yes: I reviewed the patient's medical records. - Bj Inquiry Pt receiving controlled substance: No Vital Signs: 09/13/21 18:01 09/13/21 20:25 Temperature 98 F 98.4 F Temperature Source Oral Oral Pulse Rate 78 Pulse Rate [Right Radial] 80 Respiratory Rate 18 20 Blood Pressure 142/82 H Blood Pressure [Right Arm] 129/80 Blood Pressure Mean [Right Arm] 96 Blood Pressure Source [Right Arm] Automatic Cuff Blood Pressure Position [Right Arm] Supine 02 Sat by Pulse Oximetry 98 Oxygen Delivery Method Room Air Room Air - Lab Data Lab Results 09/13/21 18:01: SARS-CoV-2 (PCR) Not detected, Influenza A Untype (PCR) Not detected, Influenza Type B (PCR) Not detected 09/13/21 18:03: Urine Color Yellow, Urine Appearance Clear, Urine pH 6.5, Ur Specific [place] 1.010, Urine Protein 1+, Urine Glucose (UA) Negative, Urine Ketones Negative, Urine Blood Trace-i, Urine Nitrate Negative, Urine Bilirubin Negative, Urine Urobilinogen 0.2, Ur Leukocyte Esterase Trace, Urine RBC 3-5, Urine WBC 10-20, Ur Squamous Epith Cells 3-5, Urine Bacteria Trace 09/13/21 18:56: WBC 7.1, RBC 4.62, Hgb 13.1, Hct 40.4, MCV 87.6, MCH 28.4, MCHC 32.5, RDW 13.3, Plt Count 177, MPV 8.4, Neut % (Auto) 79.6, Lymph % (Auto) 10.1, [place] % (Auto) 2.5, Eos % (Auto) 7.5, Baso % (Auto) 0.3, Neut # (Auto) 5.7, Lymph # (Auto) 0.7, [place] # (Auto) 0.2, Eos # (Auto) 0.5 H, Baso # (Auto) 0.0 09/13/21 18:56: Sodium 138, Potassium 3.6, Chloride 104, Carbon Dioxide 29, Anion Gap 8.6, BUN 17, Creatinine 1.10 H, Estimated Creat Clear 70, Estimated GFR 51 L, Est GFR ( Amer) 62, Glucose 86, Calcium 9.0, Total Bilirubin 0.9, AST 100 H D, ALT 84 H D, Alkaline Phosphatase 75, Total Protein 7.0, Albumin 4.1, Globulin 2.9, Albumin/Globulin Ratio 1.4 Result diagrams: 09/13/21 18:56 09/13/21 18:56 Orders (Tests/Meds): ED MEDICATIONS Discontinued Medications Generic Name Dose Route Start Last Admin Trade Name Skinnyq PRN Reason Stop Dose Admin Acetaminophen 500 mg 09/13/21 18:20 09/13/21 18:28 Acetaminophen 500mg Tab PO 09/13/21 18:21 500 mg ONCE ONE Administration Nicardipine HCl 25 mg/ Sodium 250 mls @ 50 mls/hr 09/13/21 19:30 09/13/21 19:39 Chloride IV 10/13/21 19:29 Not Given .Q5H [facility] Protocol ORDERS Category Date Time Status Urine Culture Stat Micro 09/13/21 18:03 Received - Radiology Data #1 Image(s): Chest Image Reviewed: Yes I reviewed the patient's radiology results Left lower lobe infiltrate concerning for pneumonia Medical Decision Narrative: Mrs. Campos and is a 56-year-old female with prior urinary tract infection incomplete treatment who presents to the emergency department for multiple complaints including fevers, nonbloody nonb
[2021-09-13 20:25] VITALS: BP 142/82; PULSE 78; RESP 20; TEMP 36.9; O2SAT 96
== END 2021-09-13 20:37 | disposition home or self-care (01) ==
PROVIDERS: Emergency Provider Student in an Organized Health Care Education/Training Program; PCP Family Medicine
DX: J18.9 Pneumonia, unspecified organism (principal); I10 Essential (primary) hypertension
CPT/HCPCS: 71045; 80053; 81001; 85025; 87086; 87088; 87186; 99283; C9803; U0003; U0005

== ENCOUNTER → 2022-08-13 15:00 | Outpatient (CLI) | payer OTHER, SELFPAY | PROVIDERS: PCP Family Medicine; Visit Provider Family Medicine | DX: N39.0 Urinary tract infection, site not specified (principal) | CPT/HCPCS: 87086 ==

== ENCOUNTER 2022-09-23 09:57 | Day surgery (SDC) | payer OTHER, SELFPAY ==
[2022-09-02 14:21] VITALS: BMI 28.8
[2022-09-23 10:14] VITALS: BP 144/81; PULSE 83; RESP 18; TEMP 36.2; O2SAT 97
[2022-09-23 11:09] VITALS: O2SAT 97
--- NOTE | 2022-09-23 11:16 | EXP.ANES.CKL ---
[facility] Disclaimer: The information contained in this section may have been updated after the patient was seen, as this information can be updated by other users. Medical History History of Meniere's disease Hx of migraines Surgical History History of appendectomy History of hysterectomy Hx of cholecystectomy Family History Other Family history of cancer Family history of diabetes mellitus type II Lung cancer Social History Smoking Status: Never smoker alcohol intake: never substance use type: denies use current occupational status: retired Travel in the last 8 weeks: None household members: spouse housing: house lives independently: Yes marital status: education level: high school current occupational exposures/hazards: No caffeine: Yes special esther needs: No agree to transfusion: No do you feel safe at home: Yes victim of physical abuse: No victim of emotional abuse: No victim of sexual abuse: No would you like helpful sources: No [facility] Anesthesia Checklist Patient Identification Patient Identification: Arm Band and Verbal (Name & ) Structural Data Admitted From: Home Planned Operative Procedure/s: Colonoscopy Consent for Planned Operative Procedure(s) Verified: Yes Verified Documents: Surgical Consent NPO Status Verified Time NPO: 04:00 Additional verifications Anesthesia Reactions: No Hx Blood Transfusions: No Blood Transfusion Reaction: No Airway Assessment C-Spine Mobility Assessed: Yes TMJ Mobility Assessed: Yes Dentition: Good Dentition Neurological Assessment Level of Consciousness: Awake, Alert and Appropriate Anesthesia Plan ASA Class: II Anesthesia Type: MAC
--- NOTE | 2022-09-23 11:23 | HMH.SCOPE ---
Procedure: Date: 09/23/22 Patient Date of :: 1965 Procedure Performed:: Screening colonoscopy Indications:: Screening for colon cancer Performing Provider:: Nitesh Kaur MD Referring Provider:: Alex Alvarez Sedation:: Propofol Procedure:: After placing the patient in the left lateral decubitus position, the colonoscopy was gently inserted into the rectum and under direct visualization advanced to the cecum which was identified by transillumination in the right lower quadrant, identification of the ileocecal valve, appendiceal orifice, and cecal strap. Color, texture, mucosa, and anatomy of the colon were carefully examined with the scope. Findings:: Anal canal: normal Rectum: normal Sigmoid colon: normal without polyps or inflammatory changes Descending colon: normal without polyps or inflammatory changes Splenic flexure: normal Transverse colon: normal without polyps or inflammatory changes Hepatic flexure: normal Ascending colon: normal without polyps or inflammatory changes Cecum: normal Terminal ileum: not visualized Impression: Normal colonoscopy Specimens:: None Recommendations:: Follow up exam in about TEN years or so, sooner if clinically indicated Complications:: None Estimated blood obtained (mL): 0
[2022-09-23 11:24] VITALS: BP 106/61; PULSE 65; RESP 15; TEMP 36.6; O2SAT 97
[2022-09-23 11:34] VITALS: BP 115/77; PULSE 69; RESP 16; O2SAT 100
[2022-09-23 11:44] VITALS: BP 114/53; PULSE 66; RESP 18; O2SAT 100
[2022-09-23 11:54] VITALS: BP 117/74; PULSE 65; RESP 18; O2SAT 100
== END 2022-09-23 12:09 | disposition home or self-care (01) ==
PROVIDERS: PCP Family Medicine; Visit Provider Internal Medicine Gastroenterology
PROC: 0DJD8ZZ Inspection of Lower Intestinal Tract, Via Natural or Artificial Opening Endoscopic (ICD-10-PCS; CPT 45378; principal; 2022-09-23 11:00)
DX: Z12.11 Encounter for screening for malignant neoplasm of colon (principal); Z79.899 Other long term (current) drug therapy
CPT/HCPCS: 45378

== ENCOUNTER → 2023-06-07 12:45 | Outpatient (CLI) | payer OTHER, SELFPAY ==
--- NOTE | 2023-06-07 12:46 | MR_ITS ---
FINAL REPORT CLINICAL HISTORY: WORSENING BACK PAIN lower back pain since january 2023 left leg pain FINDINGS: Multiplanar MR imaging of the lumbar spine was performed without contrast. On the sagittal T2-weighted images, disc degeneration is seen throughout. There is levoscoliosis. The vertebral alignment is normal. There is no evidence of fracture. The conus has an unremarkable appearance. There are multiple cysts in the upper sacral spine. L1-2: An annular bulge is present. There is a small left foraminal disc protrusion. L2-3: An annular bulge is present. There is a left posterolateral disc protrusion with mild left neural foraminal narrowing. L3-4: An annular bulge is present. There is a left posterolateral disc protrusion with mild left neural foraminal narrowing. L4-5: There is an annular bulge with mild left neural foraminal narrowing. L5-S1: There is an annular bulge with facet arthropathy. There is a left posterolateral disc protrusion. There is moderate left neural foraminal narrowing. IMPRESSION: Multilevel disc protrusions with associated neural foraminal narrowing. Reviewed, Interpreted and Dictated by Enrrique Antonio III, MD Transcribed by Ishaan Georges Authenticated and . [facility]
== END ==
LOC: RAD 12:46
PROVIDERS: PCP Family Medicine; Visit Provider Family Medicine
DX: M54.9 Dorsalgia, unspecified (principal); M54.50 Low back pain, unspecified; Z86.69 Personal history of other diseases of the nervous system and sense organs
CPT/HCPCS: 72148; 76376

== ENCOUNTER → 2023-07-01 08:26 | Outpatient (POV) | payer OTHER, SELFPAY ==
[2023-07-01 09:18] VITALS: BP 146/97; PULSE 96; RESP 18; O2SAT 96; BMI 29.2
--- NOTE | 2023-07-01 12:15 | EXP.PAIN.OV ---
HPI Data of Consult Patient: new to practice Consult date: 07/01/23 Requesting Physician: Simeon Jeffery CRNA Primary Care Provider: Alex Alvarez MD Consult Narrative Reason for consult: Lumbar back pain. Left hip and leg radicular symptoms. History of present illness: Ms. Salter is a 58 year old female who comes our clinic today for initial evaluation regarding chronic low back pain she describes as constant, dull, aching. Patient also complains of left hip and leg radicular symptoms to the foot. She describes the pain in the low back as constant, dull, aching. Patient also complains of left hip and leg radicular symptoms that she describes as constant, dull, aching. Patient is lumbar MRI on 06/07/2023 reveals multilevel disc disease lumbar spine. Multilevel disc bulge lumbar spine. Neuroforaminal narrowing L2-3, L3-4, L4-5 and L5-S1. Patient rates her pain 7/10. Patient is a very active individual. She does a lot of outdoor work around her home and garden. CC: Simeon Jeffery CRNA [facility] Disclaimer: The information contained in this section may have been updated after the patient was seen, as this information can be updated by other users. Medical History History of Meniere's disease Hx of migraines vascular Surgical History History of appendectomy History of hysterectomy Hx of cholecystectomy Family History Other Family history of cancer Family history of diabetes mellitus type II Lung cancer Social History (Updated 07/01/23 @ 09:19 by Lucy Ordaz RN) Smoking Status: Never smoker alcohol intake: never substance use type: denies use current occupational status: employed Travel in the last 8 weeks: None household members: spouse housing: house lives independently: Yes marital status: education level: high school current occupational exposures/hazards: No caffeine: Yes special esther needs: No agree to transfusion: No do you feel safe at home: Yes victim of physical abuse: No victim of emotional abuse: No victim of sexual abuse: No would you like helpful sources: No Meds Home Medications and Allergies Home Medications Medication Instructions Recorded Confirmed Type diazepam 2 mg tablet 2 mg PO NEEDED PRN meniers dx 08/13/22 07/01/23 History ondansetron 4 mg disintegrating 4 mg PO NEEDED PRN Nausea, 08/13/22 07/01/23 History tablet meniers dx triamterene 37.5 1 tab PO NEEDED PRN ear fluid 08/13/22 07/01/23 History mg-hydrochlorothiazide 25 mg tablet tizanidine 4 mg capsule 4 mg PO TID PRN muscle spasticity 03/17/23 07/01/23 Rx #30 caps ketorolac 10 mg tablet 10 mg PO Q8H PRN pain 5 days #30 05/26/23 07/01/23 Rx tabs hydrocodone 5 mg-acetaminophen 325 1 tab PO Q8H PRN pain #15 tabs 06/16/23 07/01/23 Rx mg tablet dicyclomine 20 mg tablet 20 mg PO TID BOWELS 07/01/23 07/01/23 History pantoprazole 40 mg tablet,delayed See Rx Instructions .Route 07/01/23 07/01/23 History release .COMPLEX GERD rizatriptan 10 mg tablet See Rx Instructions .Route 07/01/23 07/01/23 History .COMPLEX MIGRAINES New Prescriptions to Start Prescriptions: Allergies Allergy/AdvReac Type Severity Reaction Status Date / Time nitrofurantoin AdvReac Verified 06/16/23 10:54 [From Macrobid] phenegran AdvReac Uncoded 06/16/23 10:54 Objective Vital signs: Pulse Resp BP Pulse Ox O2 Del Method 96 H 18 146/97 H 96 Room Air 07/01/23 09:18 07/01/23 09:18 07/01/23 09:18 07/01/23 09:18 07/01/23 09:18 Assessment and Plan *Assessment and plan (1) Lumbar back pain with radiculopathy affecting left lower extremity: Status: Acute Category: Medical Code(s): M54.16 - Radiculopathy, lumbar region (2) Bulging lumbar d
== END ==
PROVIDERS: PCP Family Medicine; Visit Provider Nurse Anesthetist, Certified Registered
DX: M51.16 Intervertebral disc disorders with radiculopathy, lumbar region (principal)
CPT/HCPCS: 99202; G0463

== ENCOUNTER 2023-07-19 08:02 | Day surgery (SDC) | payer OTHER, SELFPAY ==
[2023-07-19 08:12] VITALS: BP 146/94; BP 147/76; PULSE 65; PULSE 70; RESP 20; TEMP 36.4; O2SAT 97; O2SAT 98; BMI 29.0
[2023-07-19 08:49] VITALS: BP 152/86; PULSE 61; RESP 18; O2SAT 97
[2023-07-19 08:50] VITALS: BP 152/86; PULSE 63; RESP 18; O2SAT 97
--- NOTE | 2023-07-19 08:54 | P.PCN_ITS ---
Procedure Date: 07/19/23 Time: 08:30 Anesthesiologist:: Simeon Jeffery CRNA Complications:: None Pre-procedure Diagnosis:: Disc lumbar spine multilevels. Lumbar radiculopathy Post-procedure Diagnosis:: Same. Indications for Procedure:: Patient is a very pleasant 58-year-old female that comes our clinic today for lumbar epidural steroid injection L4-5 level. Patient complains of low back pain as well as bilateral hip and leg radicular symptoms. Lumbar MRI shows multilevel disc degeneration. Multilevel disc bulge lumbar spine. Multiple level neuroforaminal narrowing. She rates her pain 7/10. Procedure Details:: Procedure: Lumbar epidural steroid injection under fluoroscopy Informed consent was obtained and the risks and benefits of the procedure were explained to the patient. The patient was taken to the procedure room and non invasive monitors placed, including noninvasive blood pressure cuff and pulse oximeter. The back was viewed using C-arm Fluoroscopy and prepped using Chloraprep as a cleansing solution and the L4-L5 interspace was palpated. Skin and subcutaneous tissues were anesthetized using lidocaine 1.5% and a 25-gauge needle. After this, an 18-gauge Touhy epidural needle was placed into the L4-L5 interspace and advanced using fluoroscopic guidance and loss of resistance to air until the epidural space was encountered. After confirmation of needle placement in the epidural space, with dye, a solution containing normal saline, 3 mL and Depo-Medrol 80 mg were incrementally injected into the lumbar epidural space. The patient tolerated the procedure well with no complications. The patient was observed in the Pain Clinic and then discharged home neurologically intact. Plan and Disposition:: Patient was discharged without incident.
== END 2023-07-19 09:40 | disposition home or self-care (01) ==
PROVIDERS: PCP Family Medicine; Visit Provider Nurse Anesthetist, Certified Registered
DX: M51.16 Intervertebral disc disorders with radiculopathy, lumbar region (principal)
CPT/HCPCS: 62323; J1040

== ENCOUNTER → 2023-08-29 14:09 | Outpatient (POV) | payer OTHER, SELFPAY ==
--- NOTE | 2023-08-29 14:36 | EXP.PAIN.SOA ---
[facility] Pain Management SOAP Note Subjective:: Patient is a pleasant 58-year-old female who presents today for follow-up of lumbar epidural steroid injection L4-L5 on 07/19/2023. We are currently treating the patient for degenerative disc disease of lumbar spine with lumbar radiculopathy symptoms, left hip pain. Today she rates her pain a 2 out of 10. Patient states that she did have at least 80% improvement following this injection lasting up until the last week or so. Patient states she is going back towards her baseline and has noticed her pain returning. Patient does describe this as an aching, throbbing sensation with numbness and tingling into her lower extremities. Patient does state that the pain interferes with her ability perform activities of daily living such as cooking and cleaning. Patient states that while the last injection was working she was able to decrease her Tylenol and ice use due to less pain. Patient states she felt overall more functional at that time and was able to do more than she had for months prior. Patient is interested in repeating this injection. Her Bj has been reviewed and is appropriate. Review of Systems: General: No recent weight changes, no fever, no sleep disturbances Respiratory: No cough, no shortness of air, no recurring pulmonary infections Cardiovascular/peripheral vascular: No chest pain, no palpitations, no edema, no shortness of breath Gastrointestinal: No new onset incontinence, normal bowel movements reported Genitourinary: No new onset incontinence Musculoskeletal: Low back pain, leg pain Psychiatric: [Normal mood/affect] Neurological: [Denies weakness in extremities], [denies balance issues] Objective:: Physical Exam: General: Alert and oriented x3, no acute distress, pleasant and cooperative Lungs: Respirations even and unlabored, symmetrical chest expansion Eyes: PERRL Musculoskeletal: Flexion and extension of lumbar [spine] somewhat guarded secondary to pain, [antalgic gait noted] Neurological: Speech clear, no gross sensory deficit Assessment:: Degenerative disc disease of lumbar spine with lumbar radiculopathy symptoms, left hip pain Plan:: Patient is experiencing worsening pain in her low back and legs with limited range of motion. Patient did previously have a successful diagnostic lumbar epidural providing 80% relief lasting a month and a half. I have discussed with the patient that she may benefit of repeat lumbar epidural steroid injection. Risk and benefits were discussed with the patient and she would like to proceed forward with this plan of care. Patient is not on any blood thinners. We will schedule the patient for an LESI L4-L5. Patient has been instructed to contact the clinic with any concerns before the next appointment. Dr. Day has reviewed this note and agrees with this plan of care. This note was dictated using voice recognition software and make contain errors or omissions. [facility] Disclaimer: The information contained in this section may have been updated after the patient was seen, as this information can be updated by other users. Medical History History of Meniere's disease Hx of migraines vascular Surgical History History of appendectomy History of hysterectomy Hx of cholecystectomy Family History Other Family history of cancer Family history of diabetes mellitus type II Lung cancer Social History (Updated 07/19/23 @ 08:13 by Mira Madrigal RN) Smoking Status: Never smoker alcohol intake: never substance use type: denies use current occupational status: employed Travel in the last 8 weeks: None household members: spouse housing: house lives independently: Yes marital status: education level: high school current occupational expos
[2023-08-29 15:55] VITALS: BP 139/91; PULSE 81; RESP 18; O2SAT 98; BMI 28.5
== END ==
LOC: SC.PAIN 14:09
PROVIDERS: PCP Family Medicine; Visit Provider Nurse Practitioner Family
DX: M51.16 Intervertebral disc disorders with radiculopathy, lumbar region (principal); M25.552 Pain in left hip
CPT/HCPCS: 99212; G0463

== ENCOUNTER 2023-09-16 11:06 | Day surgery (SDC) | payer OTHER, SELFPAY ==
[2023-09-16 11:29] VITALS: BP 140/94; PULSE 93; RESP 16; O2SAT 97; BMI 28.1
[2023-09-16 11:47] VITALS: BP 140/85; PULSE 85; O2SAT 96
[2023-09-16 11:53] VITALS: BP 140/85; PULSE 73; O2SAT 97
[2023-09-16 12:05] VITALS: BP 125/88; PULSE 75; RESP 16; O2SAT 97
--- NOTE | 2023-09-16 12:09 | EXP.PAIN.PRO ---
Procedure Date: 09/16/23 Time: 11:55 Anesthesiologist:: Simeon Jeffery CRNA Complications:: None Pre-procedure Diagnosis:: Degenerative disc lumbar spine multilevels. Lumbar radiculopathy. Post-procedure Diagnosis:: Same. Indications for Procedure:: Patient is a very pleasant 58-year-old female comes to clinic today for lumbar epidural steroid injection. Patient reports low lumbar back pain as well as bilateral hip and leg radicular symptoms. She rates her pain 7/10. Procedure Details:: Procedure: Lumbar epidural steroid injection under fluoroscopy Informed consent was obtained and the risks and benefits of the procedure were explained to the patient. The patient was taken to the procedure room and noninvasive monitors placed, including noninvasive blood pressure cuff and pulse oximeter. The back was viewed using C-arm Fluoroscopy and prepped using Chloraprep as a cleansing solution and the L4-L5 interspace was palpated. Skin and subcutaneous tissues were anesthetized using lidocaine 1.5% and a 25-gauge needle. After this, an 18-gauge Touhy epidural needle was placed into the L4-L5 interspace and advanced using fluoroscopic guidance and loss of resistance to air until the epidural space was encountered. After confirmation of needle placement in the epidural space, with dye, a solution containing normal saline, 3 mL and Depo-Medrol 80 mg were incrementally injected into the lumbar epidural space. The patient tolerated the procedure well with no complications. The patient was observed in the Pain Clinic and then discharged home neurologically intact. Plan and Disposition:: Patient was discharged without incident.
== END 2023-09-16 12:05 | disposition home or self-care (01) ==
PROVIDERS: PCP Family Medicine; Visit Provider Nurse Anesthetist, Certified Registered
DX: M51.16 Intervertebral disc disorders with radiculopathy, lumbar region (principal)
CPT/HCPCS: 62323; J1040

== ENCOUNTER → 2023-10-04 08:33 | Outpatient (POV) | payer OTHER, SELFPAY ==
[2023-10-04 08:43] VITALS: BP 148/93; PULSE 85; RESP 18; O2SAT 98; BMI 28.1
--- NOTE | 2023-10-04 09:29 | EXP.PAIN.SOA ---
[facility] Pain Management SOAP Note Subjective:: Patient is a pleasant 58-year-old female comes our clinic today for follow-up after receiving a second lumbar epidural steroid injection on 09/16/2023. Patient reports minimal relief in terms of her overall left posterior hip pain as well as left anterior thigh pain. Patient states her first lumbar epidural steroid injection was more significant in terms of relief. Upon examination the patient has extreme point tenderness over the left sacroiliac joint. She has positive left Vick's test. Positive left Gaenslen's test. Positive left sacroiliac joint compression test. Patient has minimal lumbar back pain at the midline. The majority of her pain is off the left of midline in the low lumbar area. Patient also reports some left anterior thigh pain. Patient reports having difficulty transitioning from sitting to standing. Difficulty sitting for any length of time. Ambulation increases pain in the left posterior hip. Patient has tried and failed conservative measures such as physical therapy, home exercise program, NSAIDs. Patient takes Tylenol as needed. Objective:: Patient is awake alert [place] x 3. No acute distress. Flexion-extension lumbar spine somewhat guarded secondary pain. Deep tendon reflexes upper lower extremities normal. Motor strength upper and lower extremities normal. There is no gross sensory deficit. Gait is normal. Assessment:: Degenerative disc lumbar spine multilevels. Lumbar radiculopathy. Bilateral sacroiliitis. Left greater than right. Plan:: Discussed in detail with the patient regarding left sacroiliac joint versus repeating lumbar epidural steroid injection. Answered the questions from the patient regarding the injection. She wishes to proceed. Patient's Bj and UDS have been appropriate. [facility] Disclaimer: The information contained in this section may have been updated after the patient was seen, as this information can be updated by other users. Medical History History of Meniere's disease Hx of migraines vascular Surgical History History of appendectomy History of hysterectomy Hx of cholecystectomy Family History Other Family history of cancer Family history of diabetes mellitus type II Lung cancer Social History Smoking Status: Never smoker alcohol intake: never substance use type: denies use current occupational status: employed Travel in the last 8 weeks: None household members: spouse housing: house lives independently: Yes marital status: education level: high school current occupational exposures/hazards: No caffeine: Yes special esther needs: No agree to transfusion: No do you feel safe at home: Yes victim of physical abuse: No victim of emotional abuse: No victim of sexual abuse: No would you like helpful sources: No
== END ==
LOC: SC.PAIN 08:34
PROVIDERS: PCP Family Medicine; Visit Provider Nurse Anesthetist, Certified Registered
DX: M51.16 Intervertebral disc disorders with radiculopathy, lumbar region (principal); M46.1 Sacroiliitis, not elsewhere classified
CPT/HCPCS: 99212; G0463

== ENCOUNTER 2023-10-14 12:36 | Day surgery (SDC) | payer OTHER, SELFPAY ==
[2023-10-14 12:49] VITALS: BP 161/101; PULSE 97; RESP 16; TEMP 36.2; O2SAT 98; BMI 28.1
[2023-10-14] MEDS: IOPAMIDOL-200 (41%);10ML VIAL 10 ML IV (12:51)
[2023-10-14] MEDS: BUPIVACAINE 0.25% 10ML INJ 25 MG IJ (12:52)
[2023-10-14] MEDS: LIDOCAINE 1% 5ML PF VIAL 5 ML (12:52)
[2023-10-14] MEDS: methylPREDNISolone ACETATE 80MG/ML VIAL 80 MG (12:52)
[2023-10-14 12:53] VITALS: BP 166/97; PULSE 68; RESP 18; O2SAT 98
[2023-10-14 12:54] VITALS: BP 166/97; PULSE 66; RESP 18; O2SAT 98
--- NOTE | 2023-10-14 12:57 | EXP.PAIN.PRO ---
Procedure Date: 10/14/23 Time: 12:57 Anesthesiologist:: Cruzito Day MD Complications:: None Pre-procedure Diagnosis:: Sacroiliitis Post-procedure Diagnosis:: Same Indications for Procedure:: Patient is a pleasant 58-year-old white female who we are treating for low back pain with lumbar radiculopathy symptoms and left-sided hip pain. She had a lumbar pleural steroid injection which helped her back and leg pain tremendously. She has some residual left-sided hip pain over the SI joint. She is tender over the left SI joint. She has positive Vick's test on the left side. She has positive Lexie test on the left side. She has positive SI joint compression test on the left side. Will plan a left SI joint injection under fluoroscopy to help with her residual pain symptoms. Procedure Details:: Left SI joint injection under fluoroscopy Informed consent was obtained and the risks and benefits of the procedure was explained to the patient. Patient was taken to the procedure room. Patient was placed prone on the procedure table. The left hip was prepped using ChloraPrep. The skin and subcutaneous tissues were anesthetized using lidocaine. I placed a 22-gauge spinal needle into the inferior aspect of the left SI joint. Needle placement was confirmed with dye. After this we injected 5 mL bupivacaine 0.25% and Depo-Medrol 40 mg into the left SI joint. The patient tolerated the procedure well with no complication. Plan and Disposition:: Will follow-up with this patient in 2 weeks. Will reevaluate symptoms at that time.
[2023-10-14 13:00] VITALS: BP 122/85; PULSE 76; RESP 18; O2SAT 98
== END 2023-10-14 13:00 | disposition home or self-care (01) ==
PROVIDERS: PCP Family Medicine; Visit Provider Anesthesiology
DX: M46.1 Sacroiliitis, not elsewhere classified (principal); M54.16 Radiculopathy, lumbar region; M25.552 Pain in left hip
CPT/HCPCS: 27096; G0260; J1040; Q9966

== ENCOUNTER → 2023-10-24 14:25 | Outpatient (POV) | payer OTHER, SELFPAY ==
--- NOTE | 2023-10-24 15:12 | A.OFFVIS_ITS ---
[facility] Pain Management SOAP Note Subjective:: Patient is a pleasant 58-year-old female who presents today for follow-up of left SI injection on 10/14/2023. We are currently treating the patient for degenerative disc disease of lumbar spine with lumbar radiculopathy symptoms, bilateral sacroiliitis, greater trochanteric bursitis. Today she rates her pain a 3 out of 10. Patient states she has had at least 80 to 90% improvement following this injection and feels like it still continuing to provide additional relief. Patient does states she has been able to increase her activity with decreased pain and overall improved function. Patient did previously have a lumbar epidural back in September that she states is still helping some of her overall back and leg symptoms. Patient is requesting a prescription of ibuprofen 800 mg. She denies any heart or kidney issues. She states she does typically take the 200 mg tablets however she feels like taking as many as she does is harder on her stomach. She is prescribed diazepam 2 mg from an outside provider. Her Bj has been reviewed and is appropriate. Review of Systems: General: No recent weight changes, no fever, no sleep disturbances Respiratory: No cough, no shortness of air, no recurring pulmonary infections Cardiovascular/peripheral vascular: No chest pain, no palpitations, no edema, no shortness of breath Gastrointestinal: No new onset incontinence, normal bowel movements reported Genitourinary: No new onset incontinence Musculoskeletal: Low back pain Psychiatric: [Normal mood/affect] Neurological: [Denies weakness in extremities], [denies balance issues] Objective:: Physical Exam: General: Alert and oriented x3, no acute distress, pleasant and cooperative Lungs: Respirations even and unlabored, symmetrical chest expansion Eyes: PERRL Musculoskeletal: Flexion and extension of lumbar [spine] somewhat guarded secondary to pain, [antalgic gait noted] Neurological: Speech clear, no gross sensory deficit Assessment:: Degenerative disc disease of lumbar spine with lumbar radiculopathy symptoms, bilateral sacroiliitis, bilateral greater trochanteric bursa Plan:: Patient has had significant improvement following her SI injection and does not require any additional injection therapy at this time. I will send in a prescription of ibuprofen 800 mg 3 times daily as needed and provide a 1 month supply of this medication. Patient will return to clinic in 1 month for reevaluation of symptoms and plan of care. Patient has been instructed to contact the clinic with any concerns before the next appointment. Dr. Day has reviewed this note and agrees with this plan of care. This note was dictated using voice recognition software and make contain errors or omissions. [facility] Disclaimer: The information contained in this section may have been updated after the patient was seen, as this information can be updated by other users. Medical History History of Meniere's disease Hx of migraines vascular Surgical History History of appendectomy History of hysterectomy Hx of cholecystectomy Family History Other Family history of cancer Family history of diabetes mellitus type II Lung cancer Social History Smoking Status: Never smoker alcohol intake: never substance use type: denies use current occupational status: employed Travel in the last 8 weeks: None household members: spouse housing: house lives independently: Yes marital status: education level: high school current occupational exposures/hazards: No caffeine: Yes special esther needs: No agree to transfusion: No do you feel safe at home: Yes victim of physical abuse: No victim of emotional abuse: No victim of sexual abuse: No would you like helpful sources: No
[2023-10-24 15:43] VITALS: BP 158/100; PULSE 83; RESP 18; O2SAT 98; BMI 27.8
== END | disposition home or self-care (01) ==
PROVIDERS: PCP Family Medicine; Visit Provider Nurse Practitioner Family
DX: M51.16 Intervertebral disc disorders with radiculopathy, lumbar region (principal); M46.1 Sacroiliitis, not elsewhere classified; M70.61 Trochanteric bursitis, right hip; M70.62 Trochanteric bursitis, left hip
CPT/HCPCS: 99212; G0463

== ENCOUNTER → 2023-11-03 12:58 | Outpatient (POV) | payer OTHER, SELFPAY ==
--- NOTE | 2023-11-03 13:08 | EXP.PAIN.SOA ---
[facility] Pain Management SOAP Note Subjective:: Patient is a pleasant 58-year-old female who presents today for follow-up. We are currently treating the patient for degenerative disc disease of lumbar spine with lumbar radiculopathy symptoms, bilateral sacroiliitis, greater trochanteric bursitis. Today she rates her pain a 7 out of 10. Patient denies any new trauma or injury. She states that all of a sudden the last 3 to 4 days she has had severe worsening pain in her low back around the left hip. Patient describes this as a constant aching, throbbing sensation that is worse with increased ambulation or prolonged sitting or standing. Patient previously had a left SI injection that did provide at least 80 to 90% improvement and this injection was done on October 14. She states that the ibuprofen is not doing anything and that she has been taking it with Tylenol arthritis however continues to have pain in this area. She denies any heart or kidney issues. She is prescribed diazepam 2 mg from an outside provider. Her Bj has been reviewed and is appropriate. Review of Systems: General: No recent weight changes, no fever, no sleep disturbances Respiratory: No cough, no shortness of air, no recurring pulmonary infections Cardiovascular/peripheral vascular: No chest pain, no palpitations, no edema, no shortness of breath Gastrointestinal: No new onset incontinence, normal bowel movements reported Genitourinary: No new onset incontinence Musculoskeletal: Low back pain, left hip pain Psychiatric: [Normal mood/affect] Neurological: [Denies weakness in extremities], [denies balance issues] Objective:: Physical Exam: General: Alert and oriented x3, no acute distress, pleasant and cooperative Lungs: Respirations even and unlabored, symmetrical chest expansion Eyes: PERRL Musculoskeletal: Flexion and extension of lumbar [spine] somewhat guarded secondary to pain, [antalgic gait noted] extreme point tenderness along left SI with positive left Vick's, Maren's, Gaenslen's, compression and distraction exam Neurological: Speech clear, no gross sensory deficit Assessment:: Degenerative disc disease of lumbar spine with lumbar radiculopathy symptoms, chronic sacroiliitis, greater trochanteric bursitis Plan:: Patient is experiencing worsening pain in her low back along the left hip with limited range of motion. Patient had extreme point tenderness along the left SI with a positive left Vick's, Maren's, Gaenslen's, compression and distraction exam. I have discussed with the patient that she may benefit from a diagnostic SI injection. Risk and benefits were discussed with the patient and she would like to proceed forward with this plan of care. I have also discussed with the patient that due to this being a potentially chronic condition that she may benefit from SI stabilization in the future. Educational handouts were given to the patient during today's visit. I will also order x-ray imaging of her left SI and send in a 2-week prescription of diclofenac 75 mg twice daily. I will also order the patient a compounded cream. Patient has been counseled to discontinue all other ibuprofen or NSAIDs while taking this medication however she can continue to take acetaminophen products. Patient will be scheduled for a left diagnostic SI injection. Patient has been instructed to contact the clinic with any concerns before the next appointment. Dr. Day has reviewed this note and agrees with this plan of care. This note was dictated using voice recognition software and make contain errors or omissions. [facility] Disclaimer: The information contained in this section may have been updated after the patient was seen, as this information can be updated by other users. Medical History History of Meniere's disease Hx of migraines vascular Surgical History History of appendectomy History of hysterectomy Hx of cholecystectomy Family History Other Family history of cancer Family history of diabetes mellitus type II Lung cancer Social History Smoking Status: Never smoker alcohol intake: never substance use type: denies use current occupational status: employed Travel in the last 8 weeks: None household members: spouse housing: house lives independently: Yes marital status: education level: high school current occupational exposures/hazards: No caffeine: Yes special esther needs: No agree to transfusion: No do you feel safe at home: Yes victim of physical abuse: No victim of emotional abuse: No victim of sexual abuse: No would you like helpful sources: No
[2023-11-03 13:15] VITALS: BP 145/96; PULSE 84; RESP 18; O2SAT 97; BMI 27.8
== END | disposition home or self-care (01) ==
PROVIDERS: PCP Family Medicine; Visit Provider Nurse Practitioner Family
DX: M51.16 Intervertebral disc disorders with radiculopathy, lumbar region (principal); M46.1 Sacroiliitis, not elsewhere classified; G89.29 Other chronic pain; M70.60 Trochanteric bursitis, unspecified hip
CPT/HCPCS: 99212; G0463

== ENCOUNTER 2023-11-03 13:33 | Outpatient (CLI) | payer OTHER, SELFPAY ==
--- NOTE | 2023-11-03 13:41 | XR_ITS ---
FINAL REPORT TECHNIQUE: SI joints 3 views CLINICAL HISTORY: LT SI JOINT PAIN COMPARISON: None FINDINGS: SACROILIAC JOINTS: There is degenerative change in the sacroiliac joints bilaterally, moderate on the left and mild on the right. There is no evidence of ankylosis or bony erosions in the sacrum. No acute abnormality is identified. IMPRESSION: Asymmetric degenerative change greater on the left than the right involving the SI joints. Reviewed, Interpreted and Dictated by Charles Barron MD Transcribed by Aixa Hines Authenticated and [facility]
== END 2023-11-03 23:59 ==
LOC: RAD 13:34
PROVIDERS: PCP Family Medicine; Visit Provider Nurse Practitioner Family
DX: M46.1 Sacroiliitis, not elsewhere classified (principal)
CPT/HCPCS: 72202

== ENCOUNTER 2023-11-15 11:29 | Day surgery (SDC) | payer OTHER, SELFPAY ==
[2023-11-15 11:49] VITALS: BP 110/74; PULSE 73; RESP 18; O2SAT 99; BMI 27.4
[2023-11-15 12:00] VITALS: BP 123/81; PULSE 71; RESP 18; O2SAT 98
[2023-11-15] MEDS: methylPREDNISolone ACETATE 80MG/ML VIAL 80 MG (12:00)
[2023-11-15] MEDS: LIDOCAINE 1% 5ML PF VIAL 5 ML (12:00)
[2023-11-15] MEDS: BUPIVACAINE 0.25% 10ML INJ 25 MG IJ (12:00)
[2023-11-15 12:01] VITALS: BP 123/81; PULSE 71; RESP 18; O2SAT 98
--- NOTE | 2023-11-15 12:08 | P.PCN_ITS ---
Procedure Date: 11/15/23 Time: 12:00 Anesthesiologist:: Simeon Jeffery CRNA Complications:: None Pre-procedure Diagnosis:: Left sacroiliitis. Post-procedure Diagnosis:: Same. Indications for Procedure:: Patient is a pleasant 58-year-old female comes our clinic for today for left SI joint injection. She has had this in the past with significant improvement terms of her overall left posterior hip pain. Patient has extreme point tenderness over the left sacroiliac joint upon examination. Patient difficulty transition from sitting to standing. Ambulation increases pain. She rates her pain today 7/10. Procedure Details:: Procedure: Left sacroiliac injection under fluoroscopy Informed consent was obtained and the risk and benefits of the procedure were explained to the patient.~ The patient was taken to the procedure room and nonin vasive monitors were placed including noninvasive blood pressure cuff and pulse oximeter.~ The patient was placed prone on the procedure table.~ The~ left hip was cleansed using Betadine as a cleansing solution.~ C-arm fluorosocpy was used to view the left SI joint.~ The skin and subcutaneous tissues were anesthetized using Lidocaine 1.5% and a 25-gauge needle.~ After this, a 22-gauge spinal needl e was inserted under fluoroscopic guidance into the inferior aspect of the left SI joint.~ Omnipaque dye was injected and a good spread was seen throughout the joint.~ After this, approximately 5 mL of bupivacaine 0.25% and Depo-Medrol 40 mg was incrementally injected into the sacroiliac joint.~ The patient tolerated the procedure well with no complications.~ The patient was observed in the Pain Clinic for a period of 30-45 minutes, then discharged home neurologically intact.~ Plan and Disposition:: Patient was discharged without incident.
[2023-11-15 12:10] VITALS: BP 126/86; PULSE 75; RESP 16; O2SAT 99
== END 2023-11-15 12:10 | disposition home or self-care (01) ==
PROVIDERS: PCP Family Medicine; Visit Provider Nurse Anesthetist, Certified Registered
DX: M46.1 Sacroiliitis, not elsewhere classified (principal)
CPT/HCPCS: 27096; G0260; J1040

== ENCOUNTER → 2023-12-08 08:27 | Outpatient (POV) | payer OTHER, SELFPAY ==
[2023-12-08 08:37] VITALS: BP 142/92; PULSE 75; RESP 20; BMI 27.4
--- NOTE | 2023-12-08 08:54 | EXP.PAIN.SOA ---
[facility] Pain Management SOAP Note Subjective:: Patient is a pleasant 58-year-old female who presents today for follow-up of left SI injection on 11/15/2023. Today she rates her pain a 2 out of 10. She states she has had at least 60% improvement following this injection and feels like it is still continuing to help. Patient does state between it and the compounded cream and her diclofenac 75 mg twice a day that we have been prescribing that it is helping. She feels like she has been able to increase her activity with overall decreased pain and improved function. Patient is requesting a refill on her diclofenac. Her Bj has been reviewed and is appropriate. Review of Systems: General: No recent weight changes, no fever, no sleep disturbances Respiratory: No cough, no shortness of air, no recurring pulmonary infections Cardiovascular/peripheral vascular: No chest pain, no palpitations, no edema, no shortness of breath Gastrointestinal: No new onset incontinence, normal bowel movements reported Genitourinary: No new onset incontinence Musculoskeletal: Low back pain Psychiatric: [Normal mood/affect] Neurological: [Denies weakness in extremities], [denies balance issues] Objective:: Physical Exam: General: Alert and oriented x3, no acute distress, pleasant and cooperative Lungs: Respirations even and unlabored, symmetrical chest expansion Eyes: PERRL Musculoskeletal: Flexion and extension of lumbar [spine] somewhat guarded secondary to pain, [antalgic gait noted] Neurological: Speech clear, no gross sensory deficit Assessment:: Degenerative disc disease of lumbar spine with lumbar radiculopathy symptoms, chronic sacroiliitis, greater trochanteric bursitis Plan:: Patient has had significant improvement following her left SI injection and does not require any additional injection therapy at this time. I will refill the patient's diclofenac 75 mg 2 times a day and provide a 3-month supply of this medication. Patient will return to clinic in 1 month for reevaluation and plan of care. Patient has been instructed to contact the clinic with any concerns before the next appointment. Dr. Day has reviewed this note and agrees with this plan of care. This note was dictated using voice recognition software and make contain errors or omissions. [facility] Disclaimer: The information contained in this section may have been updated after the patient was seen, as this information can be updated by other users. Medical History History of Meniere's disease Hx of migraines vascular Surgical History History of appendectomy History of hysterectomy Hx of cholecystectomy Family History Other Family history of cancer Family history of diabetes mellitus type II Lung cancer Social History Smoking Status: Never smoker alcohol intake: never substance use type: denies use current occupational status: employed and other Travel in the last 8 weeks: None household members: spouse housing: house lives independently: Yes marital status: education level: high school current occupational exposures/hazards: No caffeine: Yes special esther needs: No agree to transfusion: No do you feel safe at home: Yes victim of physical abuse: No victim of emotional abuse: No victim of sexual abuse: No would you like helpful sources: No
== END ==
LOC: SC.PAIN 08:28
PROVIDERS: PCP Family Medicine; Visit Provider Nurse Practitioner Family
DX: M51.16 Intervertebral disc disorders with radiculopathy, lumbar region (principal); M46.1 Sacroiliitis, not elsewhere classified; G89.29 Other chronic pain; M70.60 Trochanteric bursitis, unspecified hip
CPT/HCPCS: 99212; G0463

== ENCOUNTER 2023-12-19 14:29 | Outpatient (POV) | payer OTHER, SELFPAY ==
--- NOTE | 2023-12-19 15:07 | EXP.PAIN.SOA ---
[facility] Pain Management SOAP Note Subjective:: Patient is a pleasant 58-year-old female who presents today for follow-up. Today she rates her pain a 4 out of 10 however she states that the last few days she did have increased pain in and around her low back in the left hip. She describes this as an aching, throbbing sensation with pressure. She states that the pain does interfere with her ability to perform activities of daily living such as cooking and cleaning. Patient states that she did take Tylenol along with the diclofenac 75 mg twice a day in combination with her compounded plain and that she did get to where the pain was a little bit more manageable however she states she is worried that it is going to go back to the higher pain scale and where she is not able to do anything and that even walking aggravates it. Patient did previously have a SI injection in the past that did provide significant relief of 60% or more. She is interested in repeating this injection. Her Bj has been reviewed and is appropriate. Review of Systems: General: No recent weight changes, no fever, no sleep disturbances Respiratory: No cough, no shortness of air, no recurring pulmonary infections Cardiovascular/peripheral vascular: No chest pain, no palpitations, no edema, no shortness of breath Gastrointestinal: No new onset incontinence, normal bowel movements reported Genitourinary: No new onset incontinence Musculoskeletal: Low back pain, left hip pain Psychiatric: [Normal mood/affect] Neurological: [Denies weakness in extremities], [denies balance issues] Objective:: Physical Exam: General: Alert and oriented x3, no acute distress, pleasant and cooperative Lungs: Respirations even and unlabored, symmetrical chest expansion Eyes: PERRL Musculoskeletal: Flexion and extension of lumbar [spine] somewhat guarded secondary to pain, [antalgic gait noted] point tenderness along left SI with positive left Vick's, Maren's, Gaenslen's, compression and distraction exam Neurological: Speech clear, no gross sensory deficit FINDINGS: SACROILIAC JOINTS: There is degenerative change in the sacroiliac joints bilaterally, moderate on the left and mild on the right. There is no evidence of ankylosis or bony erosions in the sacrum. No acute abnormality is identified. IMPRESSION: Asymmetric degenerative change greater on the left than the right involving the SI joints. Reviewed, Interpreted and Dictated by Charles Barron MD Transcribed by Dan[place] Hines Authenticated and [facility] Assessment:: Degenerative disc disease of lumbar spine with lumbar radiculopathy symptoms, chronic sacroiliitis, greater trochanteric bursitis Plan:: Patient is experiencing worsening pain in her low back and left hip with limited range of motion. She had point tenderness along her left SI with a positive left Vick's, Maren's, Gaenslen's, compression and distraction exam. Patient's x-ray imaging did SHOW mild right and moderate left degenerative changes of the SI joint. I discussed with patient that she may benefit from a repeat left SI injection. Risk and benefits were discussed with patient and she would like to proceed forward with this plan of care. Patient has had significant improvement from these injections in the past. Patient has tried and failed conservative therapy. Patient is still possibly a beneficial candidate of the SI stabilization procedure. We will follow-up at future visits. Patient will be scheduled for a left SI injections under fluoroscopy. Patient has been instructed to contact the clinic with any concerns before the next appointment. Dr. Day has reviewed this note and agrees with this plan of care. This note was dictated using voice recognition software and make contain errors or omissions. [facility] Disclaimer: The information contained in this section may have been updated after the patient was seen, as this information can be updated by other users. Medical History History of Meniere's disease Hx of migraines vascular Surgical History History of appendectomy History of hysterectomy Hx of cholecystectomy Family History Other Family history of cancer Family history of diabetes mellitus type II Lung cancer Social History Smoking Status: Never smoker alcohol intake: never substance use type: denies use current occupational status: employed and other Travel in the last 8 weeks: None household members: spouse housing: house lives independently: Yes marital status: education level: high school current occupational exposures/hazards: No caffeine: Yes special esther needs: No agree to transfusion: No do you feel safe at home: Yes victim of physical abuse: No victim of emotional abuse: No victim of sexual abuse: No would you like helpful sources: No
[2023-12-19 15:11] VITALS: BP 129/72; PULSE 89; RESP 18; O2SAT 96; BMI 26.9
== END 2023-12-19 23:59 ==
LOC: SC.PAIN 14:29
PROVIDERS: PCP Family Medicine; Visit Provider Nurse Practitioner Family
DX: M51.16 Intervertebral disc disorders with radiculopathy, lumbar region (principal); M46.1 Sacroiliitis, not elsewhere classified; M70.60 Trochanteric bursitis, unspecified hip
CPT/HCPCS: 99212; G0463

== ENCOUNTER 2023-12-30 18:35 | Outpatient (CLI) | payer OTHER, SELFPAY ==
[2023-12-30 18:50] LABS: Alanine Aminotransferase 48 U/L (12-78); Albumin Level 4.3 g/dl (3.5-5.0); Albumin/Globulin Ratio 1.6 (1.1-1.8); Alkaline Phosphatase 89 U/L (38-126); Anion Gap 15.5 mEq/L (5-15); Aspartate Amino Transferase 44 U/L (14-36); Bilirubin,Total 0.3 mg/dl (0.2-1.3); Blood Urea Nitrogen 13 mg/dl (7-17); Calcium 10.1 mg/dl (8.4-10.2); Carbon Dioxide 23 mmol/L (22.0-30.0); Chloride 107 mmol/L (98-107); Estimated Glomerular Filt Rate 64 ml/min (>60); GFR (African American) 78 ML/MIN (>60); Globulin 2.7 g/dL (1.3-3.2); Glucose 104 mg/dl (74-100); Potassium 4.5 mmoL/L (3.5-5.1); Sodium 141 mmol/L (136-145)
== END 2023-12-30 23:59 ==
LOC: LAB.DROPOF 18:35
PROVIDERS: PCP Family Medicine; Visit Provider Family Medicine
DX: Z09 Encounter for follow-up examination after completed treatment for conditions other than malignant neoplasm (principal); R74.8 Abnormal levels of other serum enzymes; R73.09 Other abnormal glucose
CPT/HCPCS: 80053

== ENCOUNTER 2024-01-10 11:27 | Day surgery (SDC) | payer OTHER, SELFPAY ==
[2024-01-10 11:38] VITALS: BP 147/78; PULSE 72; RESP 18; TEMP 36.4; O2SAT 98; BMI 27.1
[2024-01-10] MEDS: methylPREDNISolone ACETATE 80MG/ML VIAL 80 MG (11:52)
[2024-01-10] MEDS: BUPIVACAINE 0.25% 10ML INJ 25 MG IJ (11:53)
[2024-01-10] MEDS: LIDOCAINE 1% 5ML PF VIAL 5 ML (11:53)
[2024-01-10 11:54] VITALS: BP 142/95; PULSE 91; RESP 18; O2SAT 97
[2024-01-10 11:59] VITALS: BP 125/79; PULSE 96; RESP 18; O2SAT 94
[2024-01-10 12:08] VITALS: BP 150/86; PULSE 71; RESP 18; O2SAT 98
--- NOTE | 2024-01-10 12:18 | P.PCN_ITS ---
Procedure Date: 01/10/24 Time: 11:40 Anesthesiologist:: Simeon Jeffery CRNA Complications:: None Pre-procedure Diagnosis:: Left sacroiliitis Post-procedure Diagnosis:: Same. Indications for Procedure:: Patient is a pleasant 58-year-old female comes our clinic today for left sacroiliac joint injection. Patient reports low lumbar back pain off the midline to the left as well as left posterior hip pain. She also reports having difficulty transitioning from sitting to standing. She rates her pain 7/10. Procedure Details:: Procedure: Left sacroiliac injection under fluoroscopy Informed consent was obtained and the risk and benefits of the procedure were explained to the patient.~ The patient was taken to the procedure room and noninvasive monitors were placed including noninvasive blood pressure cuff and pulse oximeter.~ The patient was placed prone on the procedure table.~ The~ left hip was cleansed using Betadine as a cleansing solution.~ C-arm fluorosocpy was used to view the left SI joint.~ The skin and subcutaneous tissues were anesthetized using Lidocaine 1.5% and a 25-gauge needle.~ After this, a 22-gauge spinal needle was inserted under fluoroscopic guidance into the inferior aspect of the left SI joint.~ Omnipaque dye was injected and a good spread was seen throughout the joint.~ After this, approximately 5 mL of bupivacaine 0.25% and Depo-Medrol 40 mg was incrementally injected into the sacroiliac joint.~ The p atient tolerated the procedure well with no complications.~ The patient was observed in the Pain Clinic for a period of 30-45 minutes, then discharged home neurologically intact.~ Plan and Disposition:: Patient was discharged without incident.
== END 2024-01-10 11:54 | disposition home or self-care (01) ==
LOC: SC.PAINP 11:28
PROVIDERS: PCP Family Medicine; Visit Provider Nurse Anesthetist, Certified Registered
DX: M46.1 Sacroiliitis, not elsewhere classified (principal)
CPT/HCPCS: 27096; G0260; J1010

== ENCOUNTER 2024-06-20 11:02 | Outpatient (POV) | payer OTHER, SELFPAY ==
[2024-06-20 11:57] VITALS: BP 172/91; PULSE 62; RESP 16; O2SAT 98; BMI 26.7
--- NOTE | 2024-06-20 12:09 | EXP.PAIN.SOA ---
[facility] Disclaimer: The information contained in this section may have been updated after the patient was seen, as this information can be updated by other users. Medical History Hx of migraines vascular History of Meniere's disease Surgical History History of appendectomy History of hysterectomy Hx of cholecystectomy Family History Other Family history of cancer Family history of diabetes mellitus type II Lung cancer Social History Smoking Status: Never smoker alcohol intake: never substance use type: denies use current occupational status: other Travel in the last 8 weeks: None household members: spouse housing: house lives independently: Yes marital status: education level: high school current occupational exposures/hazards: No caffeine: Yes special esther needs: No agree to transfusion: No do you feel safe at home: Yes victim of physical abuse: No victim of emotional abuse: No victim of sexual abuse: No would you like helpful sources: No PM Subjective & Objective Subjective Subjective:: Patient is a pleasant 59-year-old female who presents today for medication refill and follow-up. Today she rates her pain a 2 out of 10. She denies any new trauma or injury. She does state overall she has done well from our last visit. Patient did have a left SI injection back in January of this year that did provide 80% relief and lasted for at least 3 months. Patient does state that the pain has started to come back a little bit however is still very manageable. Patient is currently doing stretching to help with some of these pains and states that does help along with the diclofenac 75 mg twice a day along with compounded cream and her Tylenol. Her Bj has been reviewed and is appropriate. Review of Systems: General: No recent weight changes, no fever, no sleep disturbances Respiratory: No cough, no shortness of air, no recurring pulmonary infections Cardiovascular/peripheral vascular: No chest pain, no palpitations, no edema, no shortness of breath Gastrointestinal: No new onset incontinence, normal bowel movements reported Genitourinary: No new onset incontinence Musculoskeletal: Low back pain Psychiatric: [Normal mood/affect] Neurological: [Denies weakness in extremities], [denies balance issues] Pain at rest (0-10 scale): 2 Objective Objective:: Physical Exam: General: Alert and oriented x3, no acute distress, pleasant and cooperative Lungs: Respirations even and unlabored, symmetrical chest expansion Eyes: PERRL Musculoskeletal: Flexion and extension of lumbar spine within normal limits Neurological: Speech clear, no gross sensory deficit Has patient had previous pain injection?: No Conservative treatment options previously tried: Home exercise plan Length of treatment: Longer than 6 weeks Meds Home Medications and Allergies Home Medications ?Medication ?Instructions ?Recorded ?Confirmed ?Type diazepam 2 mg tablet 2 mg PO NEEDED PRN meniers dx 08/13/22 06/20/24 History ibuprofen 800 mg tablet 800 mg PO TID PRN pain #90 tabs 10/24/23 06/20/24 Rx diclofenac sodium 75 mg 75 mg PO BID #60 tabs 04/23/24 06/20/24 Rx tablet,delayed release pantoprazole 40 mg tablet,delayed See Rx Instructions .Route 04/23/24 06/20/24 Rx release .COMPLEX #30 tabs rizatriptan 10 mg tablet See Rx Instructions .Route 04/23/24 06/20/24 Rx .COMPLEX #54 tabs ondansetron 4 mg disintegrating 4 mg PO NEEDED PRN Nausea, 04/25/24 06/20/24 Rx tablet meniers dx #60 tabs dicyclomine 20 mg tablet See Rx Instructions .Route 05/31/24 06/20/24 Rx .COMPLEX #90 tabs rifaximin 550 mg tablet (Xifaxan) 550 mg PO TID #42 tabs 05/31/24 06/20/24 Rx New Prescriptions to Start Prescriptions: Allergies Allergy/AdvReac Type Severity Reaction Status Date / Time nitrofurantoin AdvReac Verified 05/31/24 15:05 [From Macrobid] phenegran AdvReac Uncoded 05/31/24 15:05 Assessment and Plan *Assessment and plan (1) Lumbar back pain with radiculopathy affecting left lower extremity: Status: Acute Category: Medical Code(s): M54.16 - Radiculopathy, lumbar region Plan I will refill the patient's diclofenac and provide a 6-month supply of this medication. Patient is still doing well overall today and does not need additional injection therapy. We will follow-up with her in 3 months for reevaluation of symptoms and plan of care. Patient has been instructed to contact the clinic with any concerns before the next appointment. Dr. Day has reviewed this note and agrees with this plan of care. This note was dictated using voice recognition software and make contain errors or omissions. All injections are used with Lidocaine or Bupivacaine and Depo Medrol.
== END 2024-06-20 23:59 | disposition home or self-care (01) ==
PROVIDERS: PCP Family Medicine; Visit Provider Nurse Practitioner Family
DX: M54.16 Radiculopathy, lumbar region (principal)
CPT/HCPCS: 99212; G0463

== ENCOUNTER 2024-08-13 13:25 | Outpatient (POV) | payer OTHER, SELFPAY ==
--- NOTE | 2024-08-13 13:58 | A.OFFVIS_ITS ---
[facility] Disclaimer: The information contained in this section may have been updated after the patient was seen, as this information can be updated by other users. Medical History Hx of migraines vascular History of Meniere's disease Surgical History History of appendectomy History of hysterectomy Hx of cholecystectomy Family History Other Family history of cancer Family history of diabetes mellitus type II Lung cancer Social History Smoking Status: Never smoker alcohol intake: never substance use type: denies use current occupational status: other Travel in the last 8 weeks: None household members: spouse housing: house lives independently: Yes marital status: education level: high school current occupational exposures/hazards: No caffeine: Yes special esther needs: No agree to transfusion: No do you feel safe at home: Yes victim of physical abuse: No victim of emotional abuse: No victim of sexual abuse: No would you like helpful sources: No PM Subjective & Objective Subjective Subjective:: Patient is a pleasant 59-year-old female who presents today for worsening pain. Today she does right it a 2 out of 10 however states by the end of the day or at nighttime it will be a 6 or 7 out of 10. She denies any new trauma or injury. She does state it is the same pain as what she had in the past and only along the left side. Patient does describe it as an aching, throbbing sensation that does wake her up in the middle the night and she has been losing more sleep. Patient states that she has to get up and try Tylenol and topicals with minimal relief. She does state the pain is interfering with her ability perform activities of daily living such as cooking and cleaning. Patient is currently managed with diclofenac 75 mg twice a day along with compounded cream. She denies any side effects and does not need any refills at this time. Patient does also make mention that she does have a little knot that has popped up on her left index finger and she is unsure whether or not it is arthritis or something else. She states that it will get more inflamed and swollen with worsening pain. Her Bj has been reviewed and is appropriate. Review of Systems: General: No recent weight changes, no fever, no sleep disturbances Respiratory: No cough, no shortness of air, no recurring pulmonary infections Cardiovascular/peripheral vascular: No chest pain, no palpitations, no edema, no shortness of breath Gastrointestinal: No new onset incontinence, normal bowel movements reported Genitourinary: No new onset incontinence Musculoskeletal: Low back pain, left hip pain Psychiatric: [Normal mood/affect] Neurological: [Denies weakness in extremities], [denies balance issues] Pain at rest (0-10 scale): 6 Objective Objective:: Physical Exam: General: Alert and oriented x3, no acute distress, pleasant and cooperative Lungs: Respirations even and unlabored, symmetrical chest expansion Eyes: PERRL Musculoskeletal: Flexion and extension of lumbar [spine] somewhat guarded secondary to pain, [antalgic gait noted] point tenderness along left SI with positive left Vick's, Maren's, Gaenslen's, compression and distraction exam Neurological: Speech clear, no gross sensory deficit Has patient had previous pain injection?: No Conservative treatment options previously tried: Home exercise plan Length of treatment: Longer than 12 weeks Meds Home Medications and Allergies Home Medications ?Medication ?Instructions ?Recorded ?Confirmed ?Type diazepam 2 mg tablet 2 mg PO NEEDED PRN meniers dx 08/13/22 06/20/24 History ibuprofen 800 mg tablet 800 mg PO TID PRN pain #90 tabs 10/24/23 06/20/24 Rx rizatriptan 10 mg tablet See Rx Instructions .Route 04/23/24 06/20/24 Rx .COMPLEX #54 tabs ondansetron 4 mg disintegrating 4 mg PO NEEDED PRN Nausea, 04/25/24 06/20/24 Rx tablet meniers dx #60 tabs rifaximin 550 mg tablet (Xifaxan) 550 mg PO TID #42 tabs 05/31/24 06/20/24 Rx diclofenac sodium 75 mg 75 mg PO BID #60 tabs 06/20/24 Rx tablet,delayed release pantoprazole 40 mg tablet,delayed See Rx Instructions .Route 07/19/24 Rx release .COMPLEX #30 tabs dicyclomine 20 mg tablet See Rx Instructions .Route 07/30/24 Rx .COMPLEX #90 tabs New Prescriptions to Start Prescriptions: Allergies Allergy/AdvReac Type Severity Reaction Status Date / Time nitrofurantoin AdvReac Verified 05/31/24 15:05 [From Macrobid] phenegran AdvReac Uncoded 05/31/24 15:05 Assessment and Plan *Assessment and plan (1) Sacroiliitis: Status: Acute Category: Medical Code(s): M46.1 - Sacroiliitis, not elsewhere classified Plan Patient is experiencing worsening pain in her low back and left hip with limited range of motion of her lumbar spine. Patient did have more extreme point tenderness along the left SI and a positive left Vick's, Maren's, Gaenslen's, compression and distraction exam. I did discuss with patient that I do believe she would benefit from a repeat left SI injection. Patient did previously have this injection back in January that did provide more than 80% relief and has lasted up until the last 2 or 3 weeks. Patient has had a history of sacroiliitis for longer than a year. Patient did get significant improved function with the prior injection and I did discuss with her that I do believe this would help again. Patient does state that she would like to proceed forward with this plan of care. Patient has tried and failed conservative therapy including continued at home stretching exercise for longer than 12 weeks. Patient will be scheduled for a left SI injection under fluoroscopy. I did discuss with her regarding her index finger knot that it very well could be arthritis or even possible gout. Patient denies any recent visits to her primary care and I did discuss with her that she need to have some updated labs and see whether or not her uric acid level is elevated. Patient was counseled that she can use the compounded cream on her index finger and see if this does help. Patient acknowledges understanding agrees with this plan of care. We will follow-up with this at future visits. Patient has been instructed to contact the clinic with any concerns before the next appointment. Dr. Day has reviewed this note and agrees with this plan of care. This note was dictated using voice recognition software and make contain errors or omissions. All injections are used with Lidocaine or Bupivacaine and Depo Medrol.
[2024-08-13 15:08] VITALS: BP 131/91; PULSE 81; RESP 16; O2SAT 98; BMI 26.2
== END 2024-08-13 23:59 | disposition home or self-care (01) ==
LOC: SC.PAIN 13:26
PROVIDERS: PCP Family Medicine; Visit Provider Nurse Practitioner Family
DX: M46.1 Sacroiliitis, not elsewhere classified (principal); Z73.89 Other problems related to life management difficulty
CPT/HCPCS: 99212; G0463

== ENCOUNTER 2024-09-11 13:00 | Day surgery (SDC) | payer OTHER, SELFPAY ==
[2024-09-11 13:20] VITALS: BP 126/86; PULSE 76; RESP 16; TEMP 36.8; O2SAT 96; BMI 26.7
--- NOTE | 2024-09-11 13:35 | EXP.PAIN.PRO ---
Procedure Date: 09/11/24 Time: 13:15 Anesthesiologist:: Simeon Jeffery CRNA Complications:: None Pre-procedure Diagnosis:: Left sacroiliitis Post-procedure Diagnosis:: Same Indications for Procedure:: Patient is a pleasant 59-year-old female who comes our clinic today for a left sacroiliac joint injection of cortisone and local anesthetic. She describes low lumbar back pain off the midline to the left. Left posterior hip pain. Difficulty transitioning from sitting to standing. She rates her pain 7/10. According to the patient she has responded very well to the same injection in the past. Procedure Details:: Procedure: Left sacroiliac injection under fluoroscopy Informed consent was obtained and the risk and benefits of the procedure were explained to the patient.~ The patient was taken to the procedure room and noninvasive monitors were placed including noninvasive blood pressure cuff and pulse oximeter.~ The patient was placed prone on the procedure table.~ The~ left hip was cleansed using Betadine as a cleansing solution.~ C-arm fluorosocpy was used to view the left SI joint.~ The skin and subcutaneous tissues were anesthetized using Lidocaine 1.5% and a 25-gauge needle.~ After this, a 22-gauge spinal needle was inserted under fluoroscopic guidance into the inferior aspect of the left SI joint.~ Omnipaque dye was injected and a good spread was seen throughout the joint.~ After this, approximately 5 mL of bupivacaine 0.25% and Depo-Medrol 40 mg was incrementally injected into the sacroiliac joint.~ The patient tolerated the procedure well with no complications.~ The patient was observed in the Pain Clinic for a period of 30-45 minutes, then discharged home neurologically intact.~ Plan and Disposition:: Patient was discharged without incident.
[2024-09-11 13:39] VITALS: BP 130/87; PULSE 71; RESP 16; TEMP 36.4; O2SAT 95
[2024-09-11] MEDS: BUPIVACAINE 0.25% 10ML INJ 25 MG IJ (13:39)
[2024-09-11] MEDS: LIDOCAINE 1% 5ML PF VIAL 5 ML (13:39)
[2024-09-11] MEDS: methylPREDNISolone ACETATE 80MG/ML VIAL 80 MG (13:39)
[2024-09-11 13:40] VITALS: BP 147/80; PULSE 63; RESP 18; O2SAT 98
[2024-09-11 13:41] VITALS: BP 147/80; PULSE 63; RESP 18; O2SAT 98
== END 2024-09-11 13:39 | disposition home or self-care (01) ==
PROVIDERS: PCP Family Medicine; Visit Provider Nurse Anesthetist, Certified Registered
DX: M46.1 Sacroiliitis, not elsewhere classified (principal)
CPT/HCPCS: 27096; G0260; J1010

== ENCOUNTER 2025-08-15 10:20 | Day surgery (SDC) | payer OTHER, SELFPAY ==
--- NOTE | 2025-08-14 17:04 | P.HP_ITS ---
History of Present Illness *Admission Date: 08/15/25 *History of present illness: Mrs. Salter is a 60-year-old female who is here for diagnostic colonoscopy secondary to a change in bowel habits. The patient does state that about 18 months ago she was having crampy abdominal pain and would skip days between simon wel movements. She had a normal colonoscopy (Nitesh Kaur MD) in 2021. She was given 10-year surveillance interval. About a year ago she changed her diet and started eating keto. Over the summer, the patient started developing intermittent episodes of diarrhea. She was placed on dicyclomine about a year ago. This does help. She does get bloating. Her diarrhea has worsened and can last for up to 8 or 9 hours and can awaken her at nighttime. The examination is deemed medically necessary for diagnostic colonoscopy. The patient has been seen, interviewed and examined prior to the procedure by both myself and the anesthesia provider. [facility] Disclaimer: The information contained in this section may have been updated after the patient was seen, as this information can be updated by other users. Medical History Hx of migraines vascular History of Meniere's disease Surgical History History of appendectomy History of hysterectomy Hx of cholecystectomy Family History Other Family history of cancer Family history of diabetes mellitus type II Lung cancer Social History Smoking Status: Never smoker alcohol intake: never substance use type: denies use current occupational status: retired Travel in the last 8 weeks?: None household members: spouse housing: house lives independently: Yes marital status: education level: high school current occupational exposures/hazards: No caffeine: Yes special esther needs: No agree to transfusion: No do you feel safe at home: Yes victim of physical abuse: No victim of emotional abuse: No victim of sexual abuse: No would you like helpful sources: No Have you lived/traveled outside [place] in past 30 days?: No Contact w/someone who lives/traveled outside [place] past 30 days?: No Exposure to someone with infectious disease in past 14 days?: No Do you have a fever (greater than 100.4 F or 38 C)?: No Have you tested positive for COVID-19?: No Exposed to someone with COVID-19 in past 14 days?: No Do you have a sore throat?: No Do you have a cough?: No Do you have any weakness?: No Are you experiencing any nausea/vomitting?: No Do you have any diarrhea?: No Are you experiencing any unusual bleeding?: No Do you have any muscle aches/pain?: No Do you have any abdominal pain?: No Are you experiencing loss of taste or smell?: No Other Medical History Have you received the Flu Vaccine for this season: No Have you received the Pneumonia Vaccine: Yes Review of Systems Review of Systems Review of systems (narrative): Negative *Cardiovascular Comments: Negative *Gastrointestinal Comments: Negative *Genitourinary Comments: Negative *Musculoskeletal Comments: Negative *Neurologic Comments: Negative Meds Home Medications and Allergies Home Medications ?Medication ?Instructions ?Recorded ?Confirmed ?Type ondansetron 4 mg disintegrating 4 mg PO NEEDED PRN Nausea, 04/25/24 08/15/25 Rx tablet meniers dx #60 tabs scopolamine base 1 mg over 3 days 1 patch transdermal Q3D PRN 04/15/25 08/15/25 Rx transdermal patch vertigo #10 ea diazepam 2 mg tablet 2 mg PO Q8H PRN meniers dx # 30 tabs 04/24/25 08/15/25 Rx rizatriptan 10 mg tablet See Rx Instructions .Route 0 04/29/25 08/15/25 Rx .COMPLEX #54 tabs acetaminophen 650 mg 650 mg PO Q12H 05/08/2508/03 History tablet,extended release (Tylenol Arthritis Pain) dicyclomine 20 mg tablet See Rx Instructions .Route 0 05/13/25 08/15/25 Rx .COMPLEX #90 tabs diclofenac sodium 75 mg See Rx Instructions .Route 0 06/19/25 08/15/25 Rx tablet,delayed release .COMPLEX #60 tabs sodium,potassium,mag sulfates 17.5 See Rx Instructions PO .COMPLEX 07/05/25 08/15/25 Rx gram-3.13 gram-1.6 gram oral soln #354 mL (Suprep Bowel Prep Kit) pantoprazole 40 mg tablet,delayed See Rx Instructions .Route 07/22/25 08/15/25 Rx release .COMPLEX #30 tabs New Prescriptions to Start Prescriptions: Allergies Allergy/AdvReac Type Severity Reaction Status Date / Time nitrofurantoin (From AdvReac Unknown Verified 08/15/25 10:46 Macrobid) allergy reaction Exam *Routine HEENT Exam Head: Present normocephalic Eye: Present EOMI and PERRL ENT: Present mucous membranes moist *Routine Neck Exam Neck: Present supple *Routine Respiratory Exam Respiratory: Present CTA bilaterally *Routine Cardiovascular Exam Cardiovascular: Present RRR *Routine Abdominal Exam Abdominal: Present soft and normoactive bowel sounds; Absent tenderness *Routine Rectal Exam Rectal:: deferred *Routine Genitalia Exam Genitalia:: deferred *Routine Extremities Exam Extremities: Absent cyanosis, clubbing or edema *Routine Skin Exam Skin: Present warm; Absent rash *Routine Neurological Exam Neurological: Present alert and oriented X3 Assessment and Plan *Assessment and plan (1) Change in bowel habits: Status: Acute Category: Medical Code(s): R19.4 - Change in bowel habit (2) Diarrhea: Status: Acute Category: Medical Code(s): R19.7 - Diarrhea, unspecified (3) Abdominal pain, crampy: Status: Acute Category: Medical Code(s): R10.9 - Unspecified abdominal pain Plan A/P: 1. Change in bowel habits with extreme diarrhea and crampy abdominal pain is the preprocedural diagnosis. The patient will be anesthetized/sedated using MAC sedation. The patient has been seen and examined. Cardiac and lung assessment prior to the examination is stable. Proceed with planned diagnostic colonoscopy.
--- NOTE | 2025-08-15 06:58 | HMH.PROCNOTE ---
[facility] Procedure Note Date: 08/15/25 Time: 13:03 Procedure Note:: Colonoscopy Procedure Report: Colonoscopy with cold biopsies Endoscopist: Edd Valentino II, MD Referring physician: Jose Alfredo Alvarez MD Date of Procedure: August 15, 2025 Equipment: Olympus [id number] adult colonoscope Sedation: MAC sedation Indication: Mrs. Salter is a 60-year-old female who is here for diagnostic colonoscopy secondary to a change in bowel habits. The patient does state that about 18 months ago she was having crampy abdominal pain and would skip days between bowel movements. She had a normal colonoscopy (Nitesh Kaur MD) in 2021. She was given 10-year surveillance interval. About a year ago she changed her diet and started eating keto. Over the summer, the patient started developing intermittent episodes of diarrhea. She was placed on dicyclomine about a year ago. This does help. She does get some bloating at a little gassiness. Her diarrhea has worsened and can last for up to 8 or 9 hours and can awaken her at nighttime. The patient reports no rectal bleeding or mucus with her stools. She reports only some intentional weight loss. She reports no family history of colon cancer. The examination is deemed medically necessary for diagnostic colonoscopy. Procedure: Prior to the procedure, a history and physical exam was performed, and patient's medications and allergies were reviewed. The risks, benefits and alternatives of the sedation and procedure were discussed with the patient. All questions were answered and informed consent was obtained. The patient was brought to the procedure room. Patient identification and proposed procedure were verified by the physician and the nurse. The patient was placed in a left lateral decubitus position and the scope was passed under direct vision. Throughout the procedure, the patient's blood pressure, pulse, and oxygen saturations were monitored continuously. The colonoscopy was accomplished without difficulty. The patient tolerated the procedure well. Findings: On digital rectal examination there was normal rectal tone. There were no external hemorrhoids. The colonoscope was introduced through the anal canal to the rectum and advanced to the cecum. The ileocecal valve and appendiceal orifice were identified. The scope was advanced a short distance into the ileum which appeared grossly normal. The scope was then withdrawn into the colon. The cecum, ascending and transverse colon and mucosa were grossly normal. Cold biopsies were taken from the right colon to rule out microscopic colitis. There were scattered diverticuli throughout the descending and sigmoid colon (LEFT colon). The rectum itself was normal. Upon retroflexion within the rectum there were grade 1-2 internal hemorrhoids. The preparation was excellent throughout with Paragon Preparation Score of 9. The cecal time was 12 minutes. Impression: 1. Left-sided diverticulosis 2. Grade 1-2 internal hemorrhoids Plan: I do feel that the patient is getting spastic diverticular disease and we will discuss dietary measures and treatment options. I will follow-up the biopsies to rule out microscopic colitis.
[2025-08-15 10:53] VITALS: BP 150/92; PULSE 62; RESP 16; TEMP 36.2; O2SAT 100; BMI 26.7
[2025-08-15] MEDS: LACTATED RINGERS 1000ML 1,000 ML 50 ML IV (11:06)
--- NOTE | 2025-08-15 12:36 | P.PNANES_ITS ---
[facility] Disclaimer: The information contained in this section may have been updated after the patient was seen, as this information can be updated by other users. Medical History Hx of migraines vascular History of Meniere's disease Surgical History History of appendectomy History of hysterectomy Hx of cholecystectomy Family History Other Family history of cancer Family history of diabetes mellitus type II Lung cancer Social History Smoking Status: Never smoker alcohol intake: never substance use type: denies use current occupational status: retired Travel in the last 8 weeks?: None household members: spouse housing: house lives independently: Yes marital status: education level: high school current occupational exposures/hazards: No caffeine: Yes special esther needs: No agree to transfusion: No do you feel safe at home: Yes victim of physical abuse: No victim of emotional abuse: No victim of sexual abuse: No would you like helpful sources: No Have you lived/traveled outside [place] in past 30 days?: No Contact w/someone who lives/traveled outside [place] past 30 days?: No Exposure to someone with infectious disease in past 14 days?: No Do you have a fever (greater than 100.4 F or 38 C)?: No Have you tested positive for COVID-19?: No Exposed to someone with COVID-19 in past 14 days?: No Do you have a sore throat?: No Do you have a cough?: No Do you have any weakness?: No Are you experiencing any nausea/vomitting?: No Do you have any diarrhea?: No Are you experiencing any unusual bleeding?: No Do you have any muscle aches/pain?: No Do you have any abdominal pain?: No Are you experiencing loss of taste or smell?: No [facility] Anesthesia Checklist Patient Identification Patient Identification: Verbal (Name & ) Structural Data Admitted From: Home Planned Operative Procedure/s: colonoscopy Consent for Planned Operative Procedure(s) Verified: Yes NPO Status Verified Time NPO: 00:00 Additional verifications Anesthesia Reactions: No Hx Blood Transfusions: No Blood Transfusion Reaction: No Airway Assessment Mallampati Score:: Class II C-Spine Mobility Assessed: Yes TMJ Mobility Assessed: Yes Dentition: Good Dentition Neurological Assessment Level of Consciousness: Awake, Alert and Appropriate Anesthesia Plan Anesthesia Risk discussed: Yes Anesthesia Plan: Verified ASA Class: II Anesthesia Type: MAC
[2025-08-15 13:05] VITALS: BP 105/60; PULSE 68; RESP 20; TEMP 36.1; O2SAT 95
[2025-08-15 13:15] VITALS: BP 99/65; PULSE 70; O2SAT 94
[2025-08-15 13:25] VITALS: BP 118/51; PULSE 77; O2SAT 98
[2025-08-15 13:35] VITALS: BP 109/67; PULSE 67; O2SAT 98
== END 2025-08-15 13:35 | disposition home or self-care (01) ==
PROVIDERS: PCP Family Medicine; Visit Provider Internal Medicine Gastroenterology
PROC: 0DJD8ZZ Inspection of Lower Intestinal Tract, Via Natural or Artificial Opening Endoscopic (ICD-10-PCS; CPT 45378; principal; 2025-08-15 12:00)
DX: K57.30 Diverticulosis of large intestine without perforation or abscess without bleeding (principal); K64.0 First degree hemorrhoids; K64.1 Second degree hemorrhoids; Z90.49 Acquired absence of other specified parts of digestive tract; Z90.710 Acquired absence of both cervix and uterus; Z88.1 Allergy status to other antibiotic agents
CPT/HCPCS: 45380; J2003; J2704; J7120